=== PATIENT | female | born 1975 | race Caucasian/White ===

== ENCOUNTER → 2017-10-19 11:19 | Outpatient (CLI) | payer OTHER, MEDICAID, SELFPAY ==
[2017-10-19 13:21] LABS: Urine N gonorrhoeae NOT DETECTED
[2017-10-19 15:31] LABS: Urine Chlamydia NOT DETECTED
[2017-10-19 19:45] LABS: HIV 1 and 2 Antibody NEGATIVE (NEGATIVE)
[2017-10-27 09:47] LABS: Rapid Plasma Reagin NON-REACTIVE
== END ==
PROVIDERS: Family Provider Family Medicine; PCP Family Medicine; Visit Provider Internal Medicine
DX: Z72.51 High risk heterosexual behavior (principal)
CPT/HCPCS: 36415; 86592; 86703; 87491; 87591

== ENCOUNTER → 2017-12-13 10:05 | Outpatient (CLI) | payer OTHER, MEDICAID, SELFPAY ==
[2017-12-13 12:03] LABS: Vitamin D 25 Hydroxy (D3) 44.8 ng/mL (30.0-100.0)
== END ==
PROVIDERS: PCP Family Medicine; Visit Provider Family Medicine
DX: E55.9 Vitamin D deficiency, unspecified (principal)
CPT/HCPCS: 36415; 82306

== ENCOUNTER → 2018-04-19 12:59 | Outpatient (CLI) | payer OTHER, MEDICAID, SELFPAY ==
[2018-04-19 15:18] LABS: Vitamin D 25 Hydroxy (D3) 30.3 ng/mL (30.0-100.0)
== END ==
PROVIDERS: Family Provider Family Medicine; PCP Family Medicine; Visit Provider Family Medicine
DX: E55.9 Vitamin D deficiency, unspecified (principal)
CPT/HCPCS: 36415; 82306

== ENCOUNTER → 2018-05-08 16:30 | Outpatient (CLI) | payer OTHER, MEDICAID, SELFPAY | PROVIDERS: PCP Family Medicine; Visit Provider Family Medicine | DX: Z84.81 Family history of carrier of genetic disease (principal) | CPT/HCPCS: 36415 ==

== ENCOUNTER → 2018-05-30 16:52 | Outpatient (CLI) | payer OTHER, MEDICAID, SELFPAY ==
[2018-05-30 17:53] LABS: Add Manual Diff / Slide Review NO; Basophils Absolute Auto 0 /uL (0-100); Basophils Percent Auto 0.2 % (0-2); Eosinophils Absolute Auto 100 /uL (0-450); Eosinophils Percent Auto 0.7 % (2-4); Hematocrit 39.4 % (36-46); Lymphocytes Absolute Auto 2000 /uL (1100-4500); Lymphocytes Percent Auto 26.6 % (25-40); Mean Corpuscular HGB Conc 32.9 % (30-36); Mean Corpuscular Hemoglobin 30.4 PG (26-34); Mean Corpuscular Volume 92.5 fL (80-100); Monocytes Absolute Auto 500 /uL (0-900); Monocytes Percent Auto 6.1 % (3-14); Neutrophils Absolute Auto 4900 /uL (1500-7000); Neutrophils Percent Auto 66.4 % (50-75); Platelet Count 193 X10^3/uL (150-400); Red Blood Cell Count 4.26 X10^6/uL (4.0-5.2); Red Cell Distribution Width 12.7 % (11.6-14.8); White Blood Cell Count 7.4 X10^3/uL (4.5-11.0)
[2018-05-30 18:02] LABS: Alanine Aminotransferase 37 IU/L (9-52); Albumin 4.3 g/dL (3.5-5.0); Albumin Globulin Ratio 1.5 (1.0-2.8); Alkaline Phosphatase 72 U/L (38-126); Aspartate Aminotransferase 24 IU/L (14-36); BUN Creatinine Ratio 21.7 (6-22); Bilirubin Total 0.6 mg/dL (0.2-1.3); Blood Urea Nitrogen 13 mg/dL (7-17); Calcium 9.4 mg/dL (8.4-10.2); Carbon Dioxide 26 mmol/L (22-32); Chloride 103 mmol/L (98-107); Estimated Glomerular Filt Rate > 60.0 mL/min (>60); Globulin 2.9 g/dL (1.7-4.1); Glucose 141 mg/dL (70-100); HEMOLYSIS < 15 (0-50); Sodium 140 mmol/L (137-145); Total Protein 7.2 g/dL (6.3-8.2)
[2018-05-30 18:03] LABS: C-Reactive Protein Quant < 0.5 mg/dL (<1.0); Rheumatoid Factor < 8.6 IU/mL (<12.0)
[2018-05-30 18:06] LABS: Hemoglobin A1C% w Est Avg Glu 5.6 % (4.0-6.0)
[2018-05-30 18:07] LABS: Erythrocyte Sedimentation Rate 28 MM/HR (0-20)
[2018-06-01 11:09] LABS: CCP Antibody (IgG) < 16 Units (< 20)
[2018-06-01 12:04] LABS: Lipoprofile NMR SEE SEPARATE REPORTS
[2018-06-02 11:50] LABS: Homocysteine 7.6 umol/L (< 10.4)
[2018-06-04 17:59] LABS: Methylmalonic Acid 143 nmol/L (87-318)
== END ==
PROVIDERS: Family Provider Family Medicine; PCP Family Medicine; Visit Provider Family Medicine
DX: E72.12 Methylenetetrahydrofolate reductase deficiency (principal); E11.9 Type 2 diabetes mellitus without complications; M25.50 Pain in unspecified joint; E66.01 Morbid (severe) obesity due to excess calories; Z82.49 Family history of ischemic heart disease and other diseases of the circulatory system
CPT/HCPCS: 36415; 80053; 83036; 83090; 83516; 83704; 83921; 84443; 85025; 85651; 86140; 86430

== ENCOUNTER → 2018-06-26 12:09 | Outpatient (CLI) | payer OTHER, MEDICAID, SELFPAY ==
[2018-06-26 12:14] LABS: RBC Urine None Seen (0-5/HPF)
[2018-06-26 13:02] LABS: Appearance Urine UA CLOUDY; Bilirubin Urine UA NEGATIVE (NEGATIVE); Color Urine UA YELLOW; Glucose Urine UA NEGATIVE (Negative); Ketones Urine UA NEGATIVE (NEGATIVE); Leukocyte Esterase Urine UA TRACE (NEGATIVE); Nitrite Urine UA NEGATIVE (Negative); Occult Blood Urine UA NEGATIVE (Negative); Protein Urine UA TRACE (Negative); Specific Gravity Urine UA >=1.030 (1.000-1.035)
[2018-06-26 13:20] LABS: Amorphous Sediment Urine 1+; Bacteria Urine Moderate (10-30); Culture Indicated Urine Specimen Cultured; Mucus Urine 2+ (Negative); Squamous Epithelial Cell Urine 5-10 /HPF; WBC Urine 5-10/HPF (0-5/HPF)
== END ==
PROVIDERS: Family Provider Family Medicine; PCP Family Medicine; Visit Provider Family Medicine
DX: R39.89 Other symptoms and signs involving the genitourinary system (principal)
CPT/HCPCS: 81001; 87086

== ENCOUNTER → 2018-10-10 15:03 | Outpatient (CLI) | payer OTHER, MEDICAID, SELFPAY ==
[2018-10-10 16:03] LABS: Hemoglobin A1C% w Est Avg Glu 5.7 % (4.0-6.0)
[2018-10-10 16:47] LABS: Vitamin D 25 Hydroxy (D3) 36.5 ng/mL (30.0-100.0)
[2018-10-10 17:17] LABS: Vitamin B12 447 pg/mL (239-931)
== END ==
PROVIDERS: PCP Family Medicine; Visit Provider Family Medicine
DX: E11.9 Type 2 diabetes mellitus without complications (principal); E55.9 Vitamin D deficiency, unspecified; E72.12 Methylenetetrahydrofolate reductase deficiency; G35 Multiple sclerosis; M79.7 Fibromyalgia; Z98.84 Bariatric surgery status
CPT/HCPCS: 36415; 82306; 82607; 83036

== ENCOUNTER → 2019-01-14 09:14 | Outpatient (CLI) | payer OTHER, MEDICAID, SELFPAY ==
[2019-01-14 10:31] LABS: Add Manual Diff / Slide Review NO; Basophils Absolute Auto 0 /uL (0-100); Basophils Percent Auto 0.7 % (0-2); Eosinophils Absolute Auto 100 /uL (0-450); Eosinophils Percent Auto 1.4 % (2-4); Hematocrit 39.2 % (36-46); Hemoglobin 13.2 g/dL (12.0-16.0); Lymphocytes Absolute Auto 1900 /uL (1100-4500); Lymphocytes Percent Auto 31.7 % (25-40); Mean Corpuscular HGB Conc 33.8 % (30-36); Mean Corpuscular Hemoglobin 29.8 PG (26-34); Mean Corpuscular Volume 88.3 fL (80-100); Monocytes Absolute Auto 400 /uL (0-900); Monocytes Percent Auto 6.2 % (3-14); Neutrophils Absolute Auto 3500 /uL (1500-7000); Platelet Count 190 X10^3/uL (150-400); Red Blood Cell Count 4.44 X10^6/uL (4.0-5.2); Red Cell Distribution Width 12.7 % (11.6-14.8); White Blood Cell Count 5.9 X10^3/uL (4.5-11.0)
[2019-01-14 10:53] LABS: Alanine Aminotransferase 13 IU/L (9-52); Albumin Globulin Ratio 1.3 (1.0-2.8); Alkaline Phosphatase 76 U/L (38-126); Aspartate Aminotransferase 20 IU/L (14-36); BUN Creatinine Ratio 18.3 (6-22); Bilirubin Total 0.6 mg/dL (0.2-1.3); Blood Urea Nitrogen 11 mg/dL (7-17); Calcium 9.1 mg/dL (8.4-10.2); Carbon Dioxide 25 mmol/L (22-32); Chloride 107 mmol/L (98-107); Cholesterol 130 mg/dL (140-199); Estimated Glomerular Filt Rate > 60.0 mL/min (>60); Glucose 131 mg/dL (70-100); HDL Cholesterol 42 mg/dL (40-60); HEMOLYSIS < 15 (0-50); LDL Cholesterol Calculated 64 mg/dL (<100); Potassium 3.8 mmol/L (3.4-5.1); Sodium 143 mmol/L (137-145); Triglycerides 121 mg/dL (35-150)
[2019-01-14 11:28] LABS: Ferritin 30.6 ng/mL (6.27-137)
[2019-01-14 11:37] LABS: TSH w/ Reflex to FT4 2.14 uIU/mL (0.47-4.68)
[2019-01-14 11:58] LABS: Folate 6.8 ng/mL (2.76-20.0); Vitamin B12 368 pg/mL (239-931)
[2019-01-17 16:03] LABS: 1 25 Dihydroxy Vitamin D 41 pg/mL (18-72)
== END ==
PROVIDERS: PCP Family Medicine; Visit Provider Family Medicine
DX: R55 Syncope and collapse (principal); Z13.220 Encounter for screening for lipoid disorders; Z98.84 Bariatric surgery status
CPT/HCPCS: 36415; 80053; 80061; 82306; 82607; 82652; 82728; 82746; 84443; 85025

== ENCOUNTER 2019-06-06 14:09 | Day surgery (SDC) | payer OTHER, MEDICAID, SELFPAY ==
[2019-06-06] MEDS: SODIUM CHLORIDE 0.9% 1,000 ML 200 ML IV (14:27)
[2019-06-06 14:38] VITALS: BP 109/71; PULSE 69; RESP 14; TEMP 36.4; O2SAT 96; BMI 38.4
--- NOTE | 2019-06-06 15:04 | PM.HP.1 ---
History of Present Illness History of Present Illness Date Patient Seen: 06/06/19 Time Patient Seen: 15:04 Chief complaint: [id number] Narrative: Patient presents for colorectal screening. They have never had any previous examination for such. No personal history of but she has a family history colon cancer. On further history denies any recent gastrointestinal symptoms. No nausea, vomiting, abdominal pain, loss of appetite, unexplained weight loss, change in bowel habits, diarrhea, constipation, melena, hematochezia, or bright red blood per rectum. 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) Morbid obesity with BMI of 50.0-59.9, adult (Chronic) Sleep apnea (Chronic) Vitamin D deficiency (Chronic) Surgical History History of gastric bypass (01/06/14) History of hand surgery (Acute ~2006) Status post delivery (~2009) Status post delivery (~2012) Status post dilation and curettage Status post glossectomy (Resolved ~2008) Status post tubal ligation (~2012) Family & Social History Family History Grandfather Heart disease Mother Obesity, unspecified obesity severity, unspecified obesity type Grandmother Heart disease Social History: household members spouse Tobacco & Substance use: Smoking Status Never smoker alcohol intake never Substance Use Type does not use Meds Home Medications and Allergies Home Medications Medication Instructions Recorded Confirmed Type acetaminophen [Tylenol Extra 0 mg PO Q4HP PRN #0 02/24/17 06/06/19 History Strength] zolpidem 10 mg tablet 10 mg PO BEDTIME PRN #30 tab 08/31/18 06/06/19 Rx pregabalin 200 mg capsule 200 mg PO BID #60 cap 09/13/18 06/06/19 Rx bupropion HCl 75 mg tablet 75 mg PO BID #60 tab 10/10/18 06/06/19 Rx cholecalciferol (vitamin D3) 1,250 50,000 unit PO .every 2 weeks #7 10/10/18 06/06/19 Rx mcg (50,000 unit) capsule cap vitamin-ferrous fumarate 1 cap PO QDAY #90 cap 10/10/18 Rx 65 mg iron-folic acid 1 mg capsule citalopram 20 mg tablet 40 mg PO DAILY #60 tab 11/19/18 06/06/19 Rx alprazolam 0.5 mg tablet 0.5 mg PO BID PRN #20 tab 01/14/19 06/06/19 Rx Allergies Allergy/AdvReac Type Severity Reaction Status Date / Time buspirone Allergy Severe Swelling Verified 06/06/19 14:30 of Lip/Tongue/Throat propranolol Allergy Severe Swelling Verified 06/06/19 14:30 of Lip/Tongue/Throat Review of Systems Review of Systems Narrative: A 10 point review of systems is negative except as noted in the HPI Exam Vital Signs (past 8 hours): - 06/06/19 14:38 Temperature 97.6 F Pulse Rate 69 Respiratory Rate 14 Blood Pressure 109/71 Pulse Oximetry 96 Oxygen Delivery Method Room Air Narrative Exam Narrative: General-no acute distress, well nourished HEENT-moist mucous membranes, no scleral icterus Neck-supple, no lymphadenopathy Chest- non labored respirations, clear to auscultation bilaterally Cardiac-regular rate no peripheral edema Abdomen-soft, nontender, non distended Extremities-warm, well perfused Neurological-alert and oriented, no focal deficits Assessment & Plan Assessment and plan (1) Screening for colon cancer: Current visit: Yes Status: Acute Assessment & Plan narrative: The patient requires colorectal screening and colonoscopy is recommended. Technical details were discussed. Risks, benefits, alternatives explained. Risks including but not limited to myocardial infarction, aspiration, bleeding, pain, missed lesion, incomplete examination, need for further radiographic studies, colonic perforation, and need for major abdominal surgery were discussed. All questions were answered to their satisfaction, and they are in agreement with this plan.
[2019-06-06] MEDS: MIDAZOLAM 5 MG/5 ML VIAL IV (15:09)
[2019-06-06] MEDS: fentaNYL 250 MCG/5 ML INJ IV (15:10)
--- NOTE | 2019-06-06 15:30 | PM.OP.ENDO ---
Operative Date/Time/Diagnoses Date of procedure: 06/06/19 Time of procedure: 15:30 Pre-op diagnosis: Family history of colon cancer Post-op diagnosis: same Procedure & Clinicians Study performed: Colonoscopy Same procedure as scheduled: Yes Indications: Family history of colon cancer. No prior colonoscopy Surgeon: Anup Ortiz Procedure Notes SCOAP/Timeout: Performed Procedure in detail: Patient placed in left lateral decubitus position. Time out was performed. Procedural sedation was administered with Versed and Fentanyl. A rectal exam demonstrated no external hemorrhoids no internal masses. Colonoscopy scope was placed into the rectum and advanced through the colon to the cecum. The ileocecal valve was identified. The scope was then slowly withdrawn examining colon thoroughly in all directions. The colonoscopy was notable for the following 1. No masses or polyps 2. Quality of prep fair 3. No diverticulosis Scope withdrawal time: 7 Sedation minutes: 26 Specimen(s): none sent Complications: none Impression: The normal colonoscopy Post-procedure Disposition: same day surgery
[2019-06-06 15:36] VITALS: BP 114/72; PULSE 75; RESP 12; TEMP 36.3; O2SAT 99
[2019-06-06 15:41] VITALS: BP 101/66; PULSE 75; RESP 18; O2SAT 99
[2019-06-06 15:45] VITALS: BP 107/65; PULSE 80; RESP 22; TEMP 36.1; O2SAT 99
== END 2019-06-06 16:05 | disposition home or self-care (01) ==
PROVIDERS: PCP Family Medicine; Referring Provider Surgery; Visit Provider Surgery
PROC: 0DJD8ZZ Inspection of Lower Intestinal Tract, Via Natural or Artificial Opening Endoscopic (ICD-10-PCS; CPT 45378; principal; 2019-06-06 15:15)
DX: Z12.11 Encounter for screening for malignant neoplasm of colon (principal); Z80.0 Family history of malignant neoplasm of digestive organs; E11.9 Type 2 diabetes mellitus without complications; F41.9 Anxiety disorder, unspecified; E66.01 Morbid (severe) obesity due to excess calories; Z68.43 Body mass index [BMI] 50.0-59.9, adult; G47.30 Sleep apnea, unspecified
CPT/HCPCS: 45378; 99152; 99153; J2250; J3010

== ENCOUNTER → 2020-04-09 12:29 | Outpatient (CLI) | payer OTHER, MEDICAID, SELFPAY ==
[2020-04-09 13:08] LABS: Add Manual Diff / Slide Review NO; Basophils Absolute Auto 0 /uL (0-100); Basophils Percent Auto 0.3 % (0-2); Eosinophils Absolute Auto 0 /uL (0-450); Eosinophils Percent Auto 0.6 % (2-4); Hematocrit 40.4 % (36-46); Hemoglobin 13.7 g/dL (12.0-16.0); Lymphocytes Absolute Auto 1700 /uL (1100-4500); Lymphocytes Percent Auto 24.6 % (25-40); Mean Corpuscular HGB Conc 33.8 % (30-36); Mean Corpuscular Hemoglobin 30.5 PG (26-34); Mean Corpuscular Volume 90.3 fL (80-100); Monocytes Absolute Auto 500 /uL (0-900); Monocytes Percent Auto 6.6 % (3-14); Neutrophils Absolute Auto 4700 /uL (1500-7000); Neutrophils Percent Auto 67.9 % (50-75); Platelet Count 200 X10^3/uL (150-400); Red Blood Cell Count 4.48 X10^6/uL (4.0-5.2); Red Cell Distribution Width 13.2 % (11.6-14.8)
[2020-04-09 13:27] LABS: Hemoglobin A1C% w Est Avg Glu 6.4 % (4.0-6.0)
[2020-04-09 13:45] LABS: Alanine Aminotransferase 17 IU/L (<35); Albumin Globulin Ratio 1.5 (1.0-2.8); Alkaline Phosphatase 74 U/L (38-126); Aspartate Aminotransferase 24 IU/L (14-36); BUN Creatinine Ratio 15.4 (6-22); Bilirubin Total 0.6 mg/dL (0.2-1.3); Blood Urea Nitrogen 10 mg/dL (7-17); Calcium 9.2 mg/dL (8.4-10.2); Carbon Dioxide 30 mmol/L (22-32); Chloride 107 mmol/L (98-107); Cholesterol 141 mg/dL (140-199); Estimated Glomerular Filt Rate > 60.0 mL/min (>60); Globulin 2.7 g/dL (1.7-4.1); Glucose 117 mg/dL (70-100); HDL Cholesterol 49 mg/dL (40-60); HEMOLYSIS < 15 (0-50); LDL Cholesterol Calculated 72 mg/dL (<100); Potassium 3.9 mmol/L (3.4-5.1); Sodium 141 mmol/L (137-145); Total Protein 6.7 g/dL (6.3-8.2); Triglycerides 102 mg/dL (35-150)
[2020-04-09 14:15] LABS: TSH w/ Reflex to FT4 1.96 uIU/mL (0.47-4.68)
[2020-04-09 14:33] LABS: Vitamin B12 317 pg/mL (239-931)
== END ==
PROVIDERS: PCP Family Medicine; Referring Provider Physician Assistant; Visit Provider Physician Assistant
DX: E66.01 Morbid (severe) obesity due to excess calories (principal); Z98.84 Bariatric surgery status; Z68.42 Body mass index [BMI] 45.0-49.9, adult; Z91.89 Other specified personal risk factors, not elsewhere classified
CPT/HCPCS: 36415; 80053; 80061; 82607; 83036; 84443; 85025

== ENCOUNTER → 2020-04-16 12:23 | Outpatient (CLI) | payer OTHER, MEDICAID, SELFPAY | PROVIDERS: PCP Family Medicine; Visit Provider Physician Assistant | DX: N39.0 Urinary tract infection, site not specified (principal) | CPT/HCPCS: 87077; 87086; 87186 ==

== ENCOUNTER → 2020-04-27 11:38 | Outpatient (CLI) | payer OTHER, MEDICAID, SELFPAY ==
[2020-04-27 13:19] LABS: Hemoglobin A1C% w Est Avg Glu 6.1 % (4.0-6.0)
[2020-04-27 13:28] LABS: Glucose Fasting 117 mg/dL (70-100)
[2020-04-27 14:26] LABS: Glucose Tol Interpretation INTERPRETATION
[2020-04-27 16:02] LABS: Glucose 1 Hour 256 mg/dL (70-170)
[2020-04-27 17:26] LABS: Glucose 2 Hour 128 mg/dL (70-140)
== END ==
PROVIDERS: PCP Family Medicine; Referring Provider Physician Assistant; Visit Provider Physician Assistant
DX: Z13.1 Encounter for screening for diabetes mellitus (principal)
CPT/HCPCS: 36415; 82951; 82952; 83036

== ENCOUNTER 2020-09-30 16:33 | Emergency (ER) | payer OTHER, MEDICAID, SELFPAY ==
[2020-09-30 16:56] VITALS: BP 127/81; PULSE 82; RESP 17; TEMP 36.7; O2SAT 97
--- NOTE | 2020-09-30 17:01 | DI.RAD.S_ITS ---
PROCEDURE: XR ANKLE LT MIN 3V INDICATIONS: injury TECHNIQUE: 3 views of the ankle were acquired. COMPARISON: None. FINDINGS: Bones: No fractures or dislocations. Ankle mortise is normally aligned. No suspicious bony lesions. Soft tissues: No tibiotalar joint effusion. Achilles tendon appears normal. IMPRESSION: No trauma found. Dictated by: Jose Little M.D. on 09/30/2020 at 17:48 Approved by: Jose Little M.D. on 09/30/2020 at 17:51
--- NOTE | 2020-09-30 19:04 | ED.LOWEXIN ---
HPI - Extremity Injury (Lower) General Chief Complaint: Extremity Injury, Lower Stated Complaint: Tripped,left ankle pain Time Seen by Provider: 09/30/20 18:58 Source: patient Mode of arrival: Wheelchair History of Present Illness HPI Narrative: 45-year-old female here for evaluation of left ankle injury. States that earlier today she tripped and twisted her left ankle. Since that time she has had extreme pain with walking on her left ankle. Related Data Home Medications Medication Instructions Recorded Confirmed acetaminophen 500 mg tablet 0 mg PO Q4HP PRN #0 02/24/17 04/16/20 (Tylenol Extra Strength) Previous Rx's Medication Instructions Recorded zolpidem 10 mg tablet 10 mg PO BEDTIME PRN #30 tab 08/31/18 pregabalin 200 mg capsule 200 mg PO BID #60 cap 09/13/18 bupropion HCl 75 mg tablet 75 mg PO BID #60 tab 10/10/18 cholecalciferol (vitamin D3) 1,250 50,000 unit PO .every 2 weeks #7 10/10/18 mcg (50,000 unit) capsule cap vitamin-ferrous fumarate 1 cap PO QDAY #90 cap 10/10/18 65 mg iron-folic acid 1 mg capsule (Mynatal) citalopram 20 mg tablet 40 mg PO DAILY #60 tab 11/19/18 alprazolam 0.5 mg tablet 0.5 mg PO BID PRN #20 tab 01/14/19 Allergies Allergy/AdvReac Type Severity Reaction Status Date / Time buspirone Allergy Severe Swelling Verified 09/30/20 16:59 of Lip/Tongue/Throat propranolol Allergy Severe Swelling Verified 09/30/20 16:59 of Lip/Tongue/Throat Review of Systems Constitutional Constitutional: Reports system reviewed and no additional complaints, except as documented Cardiovascular Cardiovascular: Reports system reviewed and no additional complaints, except as documented Respiratory Respiratory: Reports system reviewed and no additional complaints, except as documented Musculoskeletal Comments: Left ankle pain Integumentary/Breasts Comments: No bruising Neurologic Neurologic: Reports system reviewed and no additional complaints, except as documented Hematologic/Lymphatic On Anticoagulants: No Patient History Medical History Abnormal Pap smear of cervix Depression Deviated septum Diabetes mellitus Fibromyalgia (05/17/17) Generalized anxiety disorder (02/04/11) GERD (gastroesophageal reflux disease) Homozygous MTHFR mutation C677T Morbid obesity with BMI of 50.0-59.9, adult Sleep apnea Vitamin D deficiency Surgical History History of gastric bypass (01/06/14) History of hand surgery (~2006) Status post delivery (~2009) Status post delivery (~2012) Status post dilation and curettage Status post glossectomy (~2008) Status post tubal ligation (~2012) Family History Grandfather Heart disease Mother Obesity, unspecified obesity severity, unspecified obesity type Grandmother Heart disease Social History household members: spouse Smoking Status: Never smoker alcohol intake: never substance use type: does not use Smoking Status: Never smoker alcohol intake frequency: other Substance Use Type: does not use Exam Initial Vital Signs Initial Vital Signs: Vital Signs Temperature 98.1 F 09/30/20 16:56 Pulse Rate 82 09/30/20 16:56 Respiratory Rate 17 09/30/20 16:56 Blood Pressure 127/81 09/30/20 16:56 Pulse Oximetry 97 09/30/20 16:56 Const General: cooperative, healthy appearing and comfortable HENMT Head: normal to inspection and normocephalic Resp Effort & Inspection: normal respiratory effort Cardio Pulses: dorsalis pedis present Skin General: no rashes or lesions noted Neuro General: patient alert and patient awake Sensory Exam: no sensory deficits noted Extrem Other: Patient has no calf tenderness. No fibula tenderness. Does have swelling on the lateral aspect of the left foot along the lateral malleolus. No tenderness along the base of the 5th metatarsal. No tenderness along the Achilles tendon. Minimal tenderness along the medial malleolus. Is tender along the tibiotalar joint. Toes are unremarkable. Procedures Orthopedic Splinting/Casting Injury #1: Side: left Lower Extremity Injury Location: ankle Lower Extremity Immobilizer: Gelacio wrap Other Orthopedic Equipment: crutches Post splinting neuro exam: no change Post splinting vascular exam: no change Placed by: Nursing Course Orders Ordered: ED Orders 09/30/20 17:01 XR ankle LT min 3V Stat Vital Signs Vital signs: Vital Signs - 8 hr 09/30/20 16:56 Temperature 98.1 F Pulse Rate 82 Respiratory Rate 17 Blood Pressure 127/81 Pulse Oximetry 97 [facility] - Extremity Injury (Lower) Imaging Data Extremity x-ray #1: Radiologist's Impression: [address] [id number] ReportSigned Patient: Omayra Morse LMR#: [id number]: [id number]:[id number]/Sex: 45 / FDate of Service: 09/30/20Loc: EDAccession Number: [id number] Procedure: XR ankle LT min 3V Ordering Provider: Allyssa Reid D.O. PROCEDURE: XR ANKLE LT MIN 3V INDICATIONS: injury TECHNIQUE: 3 views of the ankle were acquired. COMPARISON: None. FINDINGS: Bones: No fractures or dislocations. Ankle mortise is normally aligned. No suspicious bony lesions. Soft tissues: No tibiotalar joint effusion. Achilles tendon appears normal. IMPRESSION: No trauma found. Dictated by: Jose Little M.D. on 09/30/2020 at 17:48 Approved by: Jose Little M.D. on 09/30/2020 at 17:51 [facility] Narrative Medical decision making narrative: Patient is neurovascularly intact. No fractures noted on the x-rays. She is swollen along the lateral aspect of the left ankle. I feel we can hold on further radiologic studies. Patient was provided an Gelacio bandage and crutches for comfort and she was given care instructions and return precautions. She expressed understanding and agreement. Discharge Plan Departure Patient Disposition: Home Clinical Impression: Left ankle sprain Instructions: How to Use Crutches, DI for Ankle Sprain, How To Perform RICE (Rest, Ice, Compress, Elevate), How to Apply an Elastic Wrap on Ankle Activity Restrictions/Additional Instructions: There were no fractures on the x-rays so you can walk on your leg as tolerated. I do recommend that you spend the next several days with your foot elevated and also use ice. You can use the Gelacio bandage or purchase a ankle brace from a local drug store if you wish. Return to the emergency department for any new or worsening symptoms like we discussed. Prescriptions: No Action acetaminophen [Tylenol Extra Strength] 500 MG tablet 0 mg PO Q4HP PRN (Reason: Pain (Scale Score 1-3)) Qty: 0 RF: 0 pregabalin 200 mg capsule 200 mg PO BID Qty: 60 RF: 1 citalopram 20 mg tablet 40 mg PO DAILY Qty: 60 RF: 1 alprazolam 0.5 mg tablet 0.5 mg PO BID PRN (Reason: anxiety) Qty: 20 RF: 0 zolpidem 10 mg tablet 10 mg PO BEDTIME PRN (Reason: sleep) Qty: 30 RF: 2 bupropion HCl 75 mg tablet 75 mg PO BID Qty: 60 RF: 1 Mynatal 65 mg iron- 1 mg capsule 1 cap PO QDAY Qty: 90 RF: 3 cholecalciferol (vitamin D3) 50,000 unit capsule 50,000 unit PO .every 2 weeks Qty: 7 RF: 0 Referrals: Jan Marcial DO [Primary Care Provider] -
== END 2020-09-30 19:32 | disposition home or self-care (01) ==
PROVIDERS: Emergency Provider Emergency Medicine; PCP Family Medicine
DX: S93.402A Sprain of unspecified ligament of left ankle, initial encounter (principal); W18.40XA Slipping, tripping and stumbling without falling, unspecified, initial encounter
CPT/HCPCS: 73610; 99281; 99283

== ENCOUNTER → 2021-01-03 13:09 | Outpatient (CLI) | payer OTHER, MEDICAID, SELFPAY | PROVIDERS: Family Provider Family Medicine; PCP Family Medicine; Visit Provider Nurse Practitioner Family | DX: K13.79 Other lesions of oral mucosa (principal) | CPT/HCPCS: 87070; 87255; 87880 ==

== ENCOUNTER → 2021-02-11 13:08 | Outpatient (CLI) | payer OTHER, MEDICAID, SELFPAY ==
[2021-02-11 13:59] LABS: COVID19 -Nasal RAPID POSITIVE (Negative)
== END ==
PROVIDERS: Family Provider Family Medicine; PCP Family Medicine; Referring Provider Nurse Practitioner Family; Visit Provider Nurse Practitioner Family
DX: Z20.822 Contact with and (suspected) exposure to COVID-19 (principal)
CPT/HCPCS: 87635

== ENCOUNTER 2021-04-13 15:15 | Observation (INO) | payer OTHER, MEDICAID, SELFPAY ==
[2021-04-13] VITALS (23 sets, daily range): BP systolic 80–108; BP diastolic 51–65; PULSE 68–111; RESP 11–36; TEMP 36.1–37.1; O2SAT 94–100; BMI 32.3
[2021-04-13 16:20] LABS: Add Manual Diff / Slide Review NO; Basophils Absolute Auto 0 /uL (0-100); Basophils Percent Auto 0.4 % (0-2); Eosinophils Absolute Auto 0 /uL (0-450); Eosinophils Percent Auto 0.2 % (2-4); Hematocrit 31.3 % (36-46); Hemoglobin 10.9 g/dL (12.0-16.0); Lymphocytes Absolute Auto 200 /uL (1100-4500); Lymphocytes Percent Auto 3.3 % (25-40); Mean Corpuscular HGB Conc 34.8 % (30-36); Mean Corpuscular Hemoglobin 29.2 PG (26-34); Mean Corpuscular Volume 83.9 fL (80-100); Monocytes Absolute Auto 100 /uL (0-900); Monocytes Percent Auto 2.6 % (3-14); Neutrophils Absolute Auto 5400 /uL (1500-7000); Neutrophils Percent Auto 93.5 % (50-75); Platelet Count 245 X10^3/uL (150-400); Red Blood Cell Count 3.73 X10^6/uL (4.0-5.2); Red Cell Distribution Width 12.8 % (11.6-14.8); White Blood Cell Count 5.7 X10^3/uL (4.5-11.0)
[2021-04-13 16:39] LABS: Alanine Aminotransferase 27 IU/L (<35); Albumin 3.3 g/dL (3.5-5.0); Alkaline Phosphatase 105 U/L (38-126); Aspartate Aminotransferase 39 IU/L (14-36); BUN Creatinine Ratio 8.6 (6-22); Blood Urea Nitrogen 15 mg/dL (7-17); Calcium 8.5 mg/dL (8.4-10.2); Carbon Dioxide 27 mmol/L (22-32); Chloride 99 mmol/L (98-107); Estimated Glomerular Filt Rate 31.4 mL/min (>60); Globulin 3.4 g/dL (1.7-4.1); Glucose 227 mg/dL (70-100); HEMOLYSIS < 15 (0-50); Lipase 31 U/L (23-300); Potassium 2.9 mmol/L (3.4-5.1); Sodium 133 mmol/L (137-145); Total Protein 6.7 g/dL (6.3-8.2)
[2021-04-13] MEDS: SODIUM CHLORIDE 0.9% 1,000 ML 1000 ML IV ×2 (16:46→19:43)
--- NOTE | 2021-04-13 18:17 | ED_ITS ---
HPI - General Adult General Chief complaint: Abdominal Pain Stated complaint: PAINS ACROSS LOWER BACK AND ABD PAIN FAINTED Time Seen by Provider: 04/13/21 18:10 Source: patient Mode of arrival: Ambulatory History of Present Illness HPI narrative: Patient is a 45-year-old female who is here for evaluation of approximately 4 days of left-sided back discomfort, nausea, malaise, dysuria, frequency. Has not tried anything for the symptoms. No fevers. No vomiting. Minor abdominal pain in the left lower abdomen. No change in bowel habits. No rashes. Related Data Home Medications Medication Instructions Recorded Confirmed acetaminophen 500 mg tablet 0 mg PO Q4HP PRN #0 02/24/17 02/11/21 (Tylenol Extra Strength) Previous Rx's Medication Instructions Recorded zolpidem 10 mg tablet 10 mg PO BEDTIME PRN #30 tab 08/31/18 pregabalin 200 mg capsule 200 mg PO BID #60 cap 09/13/18 bupropion HCl 75 mg tablet 75 mg PO BID #60 tab 10/10/18 cholecalciferol (vitamin D3) 1,250 50,000 unit PO .every 2 weeks #7 10/10/18 mcg (50,000 unit) capsule cap vitamin-ferrous fumarate 1 cap PO QDAY #90 cap 10/10/18 65 mg iron-folic acid 1 mg capsule (Mynatal) citalopram 20 mg tablet 40 mg PO DAILY #60 tab 11/19/18 alprazolam 0.5 mg tablet 0.5 mg PO BID PRN #20 tab 01/14/19 lidocaine HCl 2 % mucosal solution 1 applic MUCOUS MEMBRANE TID PRN 01/03/21 #100 ml Allergies Allergy/AdvReac Type Severity Reaction Status Date / Time buspirone Allergy Severe Swelling Verified 01/03/21 12:46 of Lip/Tongue/Throat propranolol Allergy Severe Swelling Verified 01/03/21 12:46 of Lip/Tongue/Throat Review of Systems Constitutional Constitutional: Reports body ache(s), Reports chills and Denies fever(s) ENT Ears, Nose, Mouth, and Throat: Reports system reviewed and no additional complaints, except as documented Cardiovascular Cardiovascular: Denies chest pain and Denies dyspnea Respiratory Respiratory: Denies dyspnea Gastrointestinal Gastrointestinal: Reports as per HPI and Reports system reviewed and no additional complaints, except as documented Genitourinary Genitourinary: Reports system reviewed and no additional complaints, except as documented and Reports as per HPI Musculoskeletal Musculoskeletal: Reports back pain Integumentary/Breasts Skin/Breast: Reports system reviewed and no additional complaints, except as do cumented Neurologic Neurologic: Reports system reviewed and no additional complaints, except as documented Hematologic/Lymphatic On Anticoagulants: No Patient History Medical History Abnormal Pap smear of cervix Depression Deviated septum Diabetes mellitus Fibromyalgia (05/17/17) Generalized anxiety disorder (02/04/11) GERD (gastroesophageal reflux disease) Homozygous MTHFR mutation [id number] Morbid obesity with BMI of 50.0-59.9, adult Sleep apnea Vitamin D deficiency Surgical History History of gastric bypass (01/06/14) History of hand surgery (~2006) Status post delivery (~2009) Status post delivery (~2012) Status post dilation and curettage Status post glossectomy (~2008) Status post tubal ligation (~2012) Family History Grandfather Heart disease Mother Obesity, unspecified obesity severity, unspecified obesity type Grandmother Heart disease Social History household members: spouse Smoking Status: Former smoker alcohol intake: never substance use type: does not use Smoking Status: Former smoker alcohol intake frequency: other Substance Use Type: does not use Exam Initial Vital Signs Initial Vital Signs: Vital Signs Temperature 98.8 F 04/13/21 15:57 Pulse Rate 111 H 04/13/21 15:57 Respiratory Rate 18 04/13/21 15:57 Blood Pressure 90/57 L 04/13/21 15:57 Pulse Oximetry 97 04/13/21 15:57 Const General: cooperative, diaphoretic, No disheveled and ill appearing Limitations: mental status not altered HENMT Head: normal to inspection Resp Effort & Inspection: normal respiratory effort Auscultation: clear to auscultation bilaterally Cardio Rate: tachycardic Rhythm: regular rhythm GI Inspection: normal to inspection Palpation: soft and No tender Back/Spine/Pelvis Back: CVA tenderness left Skin General: no rashes or lesions noted Neuro General: patient alert, patient awake and moves all extremities Speech: speech normal Extrem General: normal to inspection and capillary refill normal Psych Appearance: grossly normal and well kempt Scores GCS Shayla coma scale eye opening: Spontaneous Shayla coma scale verbal response: Orientated [place] coma scale motor response: Obey commands Shayla coma scale total score: 15 Course Orders Ordered: ED Orders 04/13/21 16:03 EKG-12 Lead Stat 04/13/21 16:12 Complete Blood Count AUTO DIFF Stat Comprehensive Metabolic Panel Stat Lipase Stat 04/13/21 16:18 Lactate (Lactic Acid) Stat 04/13/21 16:40 Blood Culture Stat 04/13/21 18:20 CT abdomen pelvis w con Stat 04/13/21 18:47 Ictotest Urine Stat Test Urine Stat Urinalysis and Microscopic Stat Urine Culture Stat 04/13/21 21:30 COVID19 - ADMIT ([employer] swab/PCR) Stat Acetaminophen (Acetaminophen 325 Mg Tablet) 650 mg PO Q6HR PRN PRN Reason: Fever/Mild Pain (1-3) Dextrose (Dextrose 50 % In Water 25 Gm/50 Ml Syringe) 25 gm IV PRN PRN PRN Reason: Hypoglycemia Enoxaparin Sodium (Enoxaparin 40 Mg/0.4 Ml Syringe) 40 mg SUBCUT DAILY ISA Sodium Chloride (Normal Saline 0.9%) 1,000 mls @ 100 mls/hr IV CONT ISA Last Admin: 04/13/21 23:07 Dose: 100 mls/hr Documented by: VANIA Ceftriaxone Sodium 1,000 mg/ (Sodium Chloride) 100 mls @ 200 mls/hr IV Q24H ISA Insulin Human Lispro (Insulin Lispro 100 Unit/Ml 3ml Vial) 0 unit SUBCUT ACHS ISA; Protocol Ketorolac Tromethamine (Ketorolac 30 Mg/Ml Vial) 30 mg IV Q6HR PRN PRN Reason: Pain, Severe (7-10) Stop: 04/18/21 22:51 Naloxone HCl (Naloxone 0.4 Mg/Ml Vial) 0.2 mg IV Q2MIN PRN PRN Reason: Opiate Reversal Ondansetron HCl (Ondansetron 4 Mg/2 Ml Inj) 4 mg IV Q8HR PRN PRN Reason: Nausea And Vomiting Discontinued Medications Sodium Chloride (Normal Saline 0.9%) 1,000 mls @ 1,000 mls/hr IV BOLUS ONE Stop: 04/13/21 17:43 Last Infusion: 04/13/21 19:33 Dose: 0 mls/hr Documented by: Admin: 04/13/21 16:46 Dose: 1,000 mls/hr Documented by: VIOLETA Ceftriaxone Sodium 2,000 mg/ (Sodium Chloride) 100 mls @ 200 mls/hr IV NOW ONE Stop: 04/13/21 18:59 Last Infusion: 04/13/21 19:39 Dose: 0 mls/hr Documented by: Admin: 04/13/21 19:06 Dose: 200 mls/hr Documented by: VIOLETA Sodium Chloride (Normal Saline 0.9%) 1,000 mls @ 1,000 mls/hr IV BOLUS ONE Stop: 04/13/21 20:34 Last Infusion: 04/13/21 22:00 Dose: 0 mls/hr Documented by: Admin: 04/13/21 19:43 Dose: 1,000 mls/hr Documented by: VANIA POTASSIUM CHLORIDE IN WATER (Potassium Cl 10 Meq/100 Ml Lexi) 10 meq in 100 mls @ 100 mls/hr IV Q1H ISA Stop: 04/13/21 21:44 Last Infusion: 04/13/21 22:00 Dose: 0 mls/hr Documented by: Admin: 04/13/21 20:54 Dose: 100 mls/hr Documented by: Infusion: 04/13/21 20:43 Dose: 100 mls/hr Documented by: Admin: 04/13/21 19:43 Dose: 100 mls/hr Documented by: VANIA Lactated Ringer's (Lactated Ringers) 1,000 mls @ 1,000 mls/hr IV BOLUS ONE Stop: 04/13/21 22:48 Last Infusion: 04/13/21 23:07 Dose: 0 mls/hr Documented by: Admin: 04/13/21 22:01 Dose: 1,000 mls/hr Documented by: VANIA Ketorolac Tromethamine (Ketorolac 30 Mg/Ml Vial) 30 mg IV NOW ONE Stop: 04/13/21 19:37 Last Admin: 04/13/21 19:43 Dose: 30 mg Documented by: KWOYSKI Ondansetron HCl (Ondansetron 4 Mg/2 Ml Inj) 4 mg IV NOW ONE Stop: 04/13/21 18:21 Last Admin: 04/13/21 18:27 Dose: 4 mg Documented by: LYDIA Vital Signs Vital signs: Vital Signs - 8 hr 04/13/21 16:36 04/13/21 16:37 04/13/21 17:00 Temperature Pulse Rate 99 H 100 H 94 H Respiratory Rate Blood Pressure 107/65 108/59 L Pulse Oximetry 95 95 94 04/13/21 17:30 04/13/21 18:00 04/13/21 18:54 Temperature Pulse Rate 88 85 81 Respiratory Rate Blood Pressure 107/59 L 107/57 L Pulse Oximetry 94 96 97 04/13/21 18:56 04/13/21 18:57 04/13/21 19:00 Temperature Pulse Rate 79 80 79 Respiratory Rate 36 H 20 Blood Pressure 88/55 L 91/53 L 96/58 L Pulse Oximetry 96 96 97 04/13/21 19:30 04/13/21 19:32 04/13/21 20:00 Temperature Pulse Rate 78 78 79 Respiratory Rate 18 19 17 Blood Pressure 88/55 L 90/55 L 88/54 L Pulse Oximetry 96 97 95 04/13/21 20:09 04/13/21 20:30 04/13/21 21:00 Temperature 97.0 F L Pulse Rate 80 75 74 Respiratory Rate 22 18 20 Blood Pressure 85/53 L 89/51 L 83/55 L Pulse Oximetry 97 96 97 04/13/21 21:30 Temperature Pulse Rate 73 Respiratory Rate Blood Pressure 83/54 L Pulse Oximetry 98 Medical Decision Making Lab Data Lab results reviewed: Yes I reviewed the patient's lab results. Result diagrams: 04/13/21 16:12 04/13/21 16:12 Labs: Lab Results 04/13/21 04/13/21 04/13/21 Range/Units 16:12 16:12 16:12 WBC 5.7 (4.5-11.0) X10^3/uL RBC 3.73 L (4.0-5.2) X10^6/uL Hgb 10.9 L (12.0-16.0) g/dL Hct 31.3 L (36-46) % MCV 83.9 (80-100) fL MCH 29.2 (26-34) PG MCHC 34.8 (30-36) % RDW 12.8 (11.6-14.8) % Plt Count 245 (150-400) X10^3/uL Neut % (Auto) 93.5 H (50-75) % Lymph % (Auto) 3.3 L (25-40) % [place] % (Auto) 2.6 L (3-14) % Eos % (Auto) 0.2 L (2-4) % Baso % (Auto) 0.4 (0-2) % Neut # (Auto) 5400 (7819-8658) /uL Lymph # (Auto) 200 L (6791-7631) /uL [place] # (Auto) 100 (0-900) /uL Eos # (Auto) 0 (0-450) /uL Baso # (Auto) 0 (0-100) /uL Sodium 133 L (137-145) mmol/L Potassium 2.9 L (3.4-5.1) mmol/L Chloride 99 (98-107) mmol/L Carbon Dioxide 27 (22-32) mmol/L BUN 15 (7-17) mg/dL Creatinine 1.75 H (0.52-1.04) mg/dL Estimated GFR 31.4 L (>60) mL/min BUN/Creatinine Ratio 8.6 (6-22) Glucose 227 H (70-100) mg/dL Hemoglobin A1c 6.0 (4.0-6.0) % Lactate (0.7-2.1) mmol/L Calcium 8.5 (8.4-10.2) mg/dL Magnesium (1.6-2.3) mg/dL Total Bilirubin 1.0 (0.2-1.3) mg/dL AST 39 H (14-36) IU/L ALT 27 (<35) IU/L Alkaline Phosphatase 105 (38-126) U/L Total Protein 6.7 (6.3-8.2) g/dL Albumin 3.3 L (3.5-5.0) g/dL Globulin 3.4 (1.7-4.1) g/dL Albumin/Globulin Ratio 1.0 (1.0-2.8) Lipase 31 (23-300) U/L Urine Color Urine Appearance Urine pH (4.5-8.0) Ur Specific [place] (1.000-1.035) Urine Protein (Negative) Urine Glucose (UA) (Negative) g/dL Urine Ketones (NEGATIVE) Urine Occult Blood (Negative) Urine Nitrate (Negative) Urine Bilirubin (NEGATIVE) Ur Bilirubin Confirm (Negative) Urine Urobilinogen (0.2) E.U./dL Ur Leukocyte Esterase (NEGATIVE) Urine RBC (0-5/HPF) Urine WBC (0-5/HPF) Ur Squamous Epith Cells (0-5/HPF) Ur Transition Epith Cell (0-5/HPF) Ur Renal Epithelial Cell (0-1/HPF) Amorphous Sediment Urine Bacteria (None) Ur Culture Indicated? Urine Test (Negative) SARS-CoV-2 (PCR) (Negative) 04/13/21 04/13/21 04/13/21 Range/Units 16:12 16:18 18:47 WBC (4.5-11.0) X10^3/uL RBC (4.0-5.2) X10^6/uL Hgb (12.0-16.0) g/dL Hct (36-46) % MCV (80-100) fL MCH (26-34) PG MCHC (30-36) % RDW (11.6-14.8) % Plt Count (150-400) X10^3/uL Neut % (Auto) (50-75) % Lymph % (Auto) (25-40) % [place] % (Auto) (3-14) % Eos % (Auto) (2-4) % Baso % (Auto) (0-2) % Neut # (Auto) (5577-7315) /uL Lymph # (Auto) (5161-3987) /uL [place] # (Auto) (0-900) /uL Eos # (Auto) (0-450) /uL Baso # (Auto) (0-100) /uL Sodium (137-145) mmol/L Potassium (3.4-5.1) mmol/L Chloride (98-107) mmol/L Carbon Dioxide (22-32) mmol/L BUN (7-17) mg/dL Creatinine (0.52-1.04) mg/dL Estimated GFR (>60) mL/min BUN/Creatinine Ratio (6-22) Glucose (70-100) mg/dL Hemoglobin A1c (4.0-6.0) % Lactate 2.1 (0.7-2.1) mmol/L Calcium (8.4-10.2) mg/dL Magnesium 1.5 L (1.6-2.3) mg/dL Total Bilirubin (0.2-1.3) mg/dL AST (14-36) IU/L ALT (<35) IU/L Alkaline Phosphatase (38-126) U/L Total Protein (6.3-8.2) g/dL Albumin (3.5-5.0) g/dL Globulin (1.7-4.1) g/dL Albumin/Globulin Ratio (1.0-2.8) Lipase (23-300) U/L Urine Color Yellow Urine Appearance Cloudy Urine pH 5.0 (4.5-8.0) Ur Specific [place] 1.020 (1.000-1.035) Urine Protein 2+ H (Negative) Urine Glucose (UA) Negative (Negative) g/dL Urine Ketones Trace H (NEGATIVE) Urine Occult Blood 3+ H (Negative) Urine Nitrate Negative (Negative) Urine Bilirubin 1+ H (NEGATIVE) Ur Bilirubin Confirm Negative (Negative) Urine Urobilinogen 1.0 (0.2) E.U./dL Ur Leukocyte Esterase 2+ H (NEGATIVE) Urine RBC 30-100/hpf H (0-5/HPF) Urine WBC >100/hpf H (0-5/HPF) Ur Squamous Epith Cells 1-5 /hpf (0-5/HPF) Ur Transition Epith Cell 5-10/hpf H (0-5/HPF) Ur Renal Epithelial Cell 1-5/hpf H (0-1/HPF) Amorphous Sediment 2+ Urine Bacteria Many (>30) H (None) Ur Culture Indicated? Specimen cultured Urine Test (Negative) SARS-CoV-2 (PCR) (Negative) 04/13/21 04/13/21 04/13/21 Range/Units 18:47 21:30 21:55 WBC (4.5-11.0) X10^3/uL RBC (4.0-5.2) X10^6/uL Hgb (12.0-16.0) g/dL Hct (36-46) % MCV (80-100) fL MCH (26-34) PG MCHC (30-36) % RDW (11.6-14.8) % Plt Count (150-400) X10^3/uL Neut % (Auto) (50-75) % Lymph % (Auto) (25-40) % [place] % (Auto) (3-14) % Eos % (Auto) (2-4) % Baso % (Auto) (0-2) % Neut # (Auto) (7572-1528) /uL Lymph # (Auto) (3183-8278) /uL [place] # (Auto) (0-900) /uL Eos # (Auto) (0-450) /uL Baso # (Auto) (0-100) /uL Sodium (137-145) mmol/L Potassium (3.4-5.1) mmol/L Chloride (98-107) mmol/L Carbon Dioxide (22-32) mmol/L BUN (7-17) mg/dL Creatinine (0.52-1.04) mg/dL Estimated GFR (>60) mL/min BUN/Creatinine Ratio (6-22) Glucose (70-100) mg/dL Hemoglobin A1c (4.0-6.0) % Lactate 0.9 (0.7-2.1) mmol/L Calcium (8.4-10.2) mg/dL Magnesium (1.6-2.3) mg/dL Total Bilirubin (0.2-1.3) mg/dL AST (14-36) IU/L ALT (<35) IU/L Alkaline Phosphatase (38-126) U/L Total Protein (6.3-8.2) g/dL Albumin (3.5-5.0) g/dL Globulin (1.7-4.1) g/dL Albumin/Globulin Ratio (1.0-2.8) Lipase (23-300) U/L Urine Color Urine Appearance Urine pH (4.5-8.0) Ur Specific [place] (1.000-1.035) Urine Protein (Negative) Urine Glucose (UA) (Negative) g/dL Urine Ketones (NEGATIVE) Urine Occult Blood (Negative) Urine Nitrate (Negative) Urine Bilirubin (NEGATIVE) Ur Bilirubin Confirm (Negative) Urine Urobilinogen (0.2) E.U./dL Ur Leukocyte Esterase (NEGATIVE) Urine RBC (0-5/HPF) Urine WBC (0-5/HPF) Ur Squamous Epith Cells (0-5/HPF) Ur Transition Epith Cell (0-5/HPF) Ur Renal Epithelial Cell (0-1/HPF) Amorphous Sediment Urine Bacteria (None) Ur Culture Indicated? Urine Test Negative (Negative) SARS-CoV-2 (PCR) Negative (Negative) Imaging Data CT scan - abdomen/pelvis: Radiologist's Impression: [address] [address] [address] Scan Report Signed Patient: Omayra Morse MR#: [id number] : 1975 Acct:[id number] Age/Sex: 45 / F Date of Service: 04/13/21 Loc: ED Accession Number: [id number] ?? Procedure: CT abdomen pelvis w con Ordering Provider: Charles Whipple D.O. PROCEDURE:? CT ABDOMEN PELVIS W CON ? INDICATIONS:? LLQ and l flank pain ? TECHNIQUE:? After the administration of intravenous contrast, axial sections acquired from the lung bases to the pubic symphysis.? Coronal and sagittal reformats were performed.? For radiation dose reduction, the following was used:? automated exposure control, adjustment of mA and/or kV according to patient size.? ? COMPARISON:? None. ? FINDINGS:? Image quality:? Excellent.? ? Lung bases:? Unremarkable. Heart:? No significant findings. ? ABDOMEN: Liver:? Mild hepatic steatosis and hepatomegaly.? ? Gallbladder:? Cholelithiasis.? No gallbladder wall thickening or pericholecystic inflammatory findings. Biliary ducts:? Unremarkable.? ? Pancreas:? Unremarkable.? ? Spleen:? Unremarkable.? ? Adrenal Glands:? No adrenal gland nodule or mass. Kidneys and Ureters:? There is mucosal hyperenhancement in the renal calices/pelvis ease as well as in the proximal ureters.? Diffuse periureteric fat stranding and fluid.? Mild bilateral perinephric fat stranding.? Uniform and symmetric renal enhancement with no wedge-shaped enhancement defects or hyperenhancing areas identified.? No urinary tract calculus. ? Stomach and Bowel:? Stomach, small bowel loops, and colon are unremarkable.? Peritoneum:? No abnormal intraperitoneal fluid.? No free air.? ? Ventral Wall: ? No hernias.? Abdominal Nodes:? No retroperitoneal or mesenteric adenopathy by size criteria.? Vessels:? Aorta and inferior vena cava are normal in size.? ? PELVIS: Pelvic Organs:? Uterus and adnexa demonstrate no mass or acute finding.? Pelvic Nodes: No enlarged lymph nodes.? Miscellaneous: No hernias are seen. ? ? ? Bones:? No acute or suspicious lesion. ? ? IMPRESSION:? Findings of ascending urinary tract infection and findings s uggestive of developing pyelonephritis.? ? ? Dictated by: Segundo Mauro M.D. on 04/13/2021 at 17:49 ? ? Approved by: Segundo Mauro M.D. on 04/13/2021 at 17:54?? ECG Data Attestation: I personally reviewed and interpreted this ECG as follows: Interpretation: Sinus rhythm Ventricular rate 95 Normal axis Normal QRS Normal QTC No ST T wave changes MDM Narrative Medical decision making narrative: No leukocytosis, lactate unremarkable. Is afebrile but is diaphoretic. CT scan shows what appears to be an ascending urinary tract infection. This does correspond to her symptoms and also her urinalysis. Was given Rocephin. Blood cultures obtained. Patient is ill appearing but not toxic. I do feel patient would benefit from admission to the hospital with IV antibiotics and fluids. Discussed the case with SIMA Carl the [facility] hospital provider who will admit for further evaluation and treatment. Discussed the need for admission with the patient. She expressed understanding and agreement. Discharge Plan Departure Patient Disposition: Admitted As Inpatient Clinical Impression: Pyelonephritis Admit Date/Time: 04/13/21 21:58 Admit Provider: Lexy Carl
--- NOTE | 2021-04-13 18:20 | DI.CT.S_ITS ---
PROCEDURE: CT ABDOMEN PELVIS W CON INDICATIONS: LLQ and l flank pain TECHNIQUE: After the administration of intravenous contrast, axial sections acquired from the lung bases to the pubic symphysis. Coronal and sagittal reformats were performed. For radiation dose reduction, the following was used: automated exposure control, adjustment of mA and/or kV according to patient size. COMPARISON: None. FINDINGS: Image quality: Excellent. Lung bases: Unremarkable. Heart: No significant findings. ABDOMEN: Liver: Mild hepatic steatosis and hepatomegaly. Gallbladder: Cholelithiasis. No gallbladder wall thickening or pericholecystic inflammatory findings. Biliary ducts: Unremarkable. Pancreas: Unremarkable. Spleen: Unremarkable. Adrenal Glands: No adrenal gland nodule or mass. Kidneys and Ureters: There is mucosal hyperenhancement in the renal calices/pelvis ease as well as in the proximal ureters. Diffuse periureteric fat stranding and fluid. Mild bilateral perinephric fat stranding. Uniform and symmetric renal enhancement with no wedge-shaped enhancement defects or hyperenhancing areas identified. No urinary tract calculus. Stomach and Bowel: Stomach, small bowel loops, and colon are unremarkable. Peritoneum: No abnormal intraperitoneal fluid. No free air. Ventral Wall: No hernias. Abdominal Nodes: No retroperitoneal or mesenteric adenopathy by size criteria. Vessels: Aorta and inferior vena cava are normal in size. PELVIS: Pelvic Organs: Uterus and adnexa demonstrate no mass or acute finding. Pelvic Nodes: No enlarged lymph nodes. Miscellaneous: No hernias are seen. Bones: No acute or suspicious lesion. IMPRESSION: Findings of ascending urinary tract infection and findings suggestive of developing pyelonephritis. Dictated by: Segundo Mauro M.D. on 04/13/2021 at 17:49 Approved by: Segundo Mauro M.D. on 04/13/2021 at 17:54
[2021-04-13] MEDS: ONDANSETRON 4 MG/2 ML INJ IV (18:27)
[2021-04-13] MEDS: cefTRIAXone 2,000 MG in SODIUM CHLORIDE 0.9% 100 ML 200 ML IV (19:06)
[2021-04-13 19:30] LABS: Appearance Urine UA CLOUDY; Bilirubin Urine UA 1+ (NEGATIVE); Color Urine UA YELLOW; Glucose Urine UA NEGATIVE (Negative); Ketones Urine UA TRACE (NEGATIVE); Leukocyte Esterase Urine UA 2+ (NEGATIVE); Nitrite Urine UA NEGATIVE (Negative); Occult Blood Urine UA 3+ (Negative); Protein Urine UA 2+ (Negative)
[2021-04-13 19:34] LABS: Pregnancy Test Urine Negative (Negative)
[2021-04-13 19:37] LABS: Ictotest Urine Negative (Negative)
[2021-04-13 19:39] LABS: Amorphous Sediment Urine 2+; Bacteria Urine Many (>30); RBC Urine 30-100/HPF (0-5/HPF); Renal Epithelial Cells Urine 1-5/HPF (0-1/HPF); Squamous Epithelial Cell Urine 1-5 /HPF (0-5/HPF); Transitional Epi Cells Urine 5-10/HPF (0-5/HPF); WBC Urine >100/HPF (0-5/HPF)
[2021-04-13 19:40] LABS: Culture Indicated Urine Specimen Cultured
[2021-04-13] MEDS: KETOROLAC 30 MG/ML VIAL IV (19:43)
[2021-04-13] MEDS: POTASSIUM CHLORIDE IN WATER 10 MEQ/100 ML PIGGYBACK 100 MEQ IV ×2 (19:43→20:54)
[2021-04-13 19:46] LABS: Lactate (Lactic Acid) 2.1 mmol/L (0.7-2.1)
--- NOTE | 2021-04-13 19:52 | PC.NURSE ---
Pt resting with eyes closed, slow to arouse to verbal stimulation. BP 90's/50's, slighy tachypneic with RR 20-26 while sleeping. K noted at 2.7. Pt reports back pain. Dr Whipple notified of above, orders received for 2nd liter of NS, toradol, check lactate, replete K.
[2021-04-13 21:38] LABS: Reflexed Lactate in 2 Hours Y
[2021-04-13] MEDS: LACTATED RINGERS 1,000 ML 1000 ML IV (22:01)
[2021-04-13 22:15] LABS: Lactate 2HR (Lactic Acid Rflx) 0.9 mmol/L (0.7-2.1)
[2021-04-13 22:20] LABS: COVID19 - ADMIT (NP swab/PCR) Negative (Negative)
[2021-04-13] MEDS: SODIUM CHLORIDE 0.9% 1,000 ML 100 ML IV (23:07)
[2021-04-13 23:11] LABS: Magnesium 1.5 mg/dL (1.6-2.3)
[2021-04-14] VITALS (13 sets, daily range): BP systolic 90–108; BP diastolic 60–67; PULSE 65–83; RESP 16–19; TEMP 36–36.6; O2SAT 93–100; BMI 33.3
--- NOTE | 2021-04-14 00:11 | PC.NURSE ---
Pt given snack per request.
[2021-04-14] MEDS: KETOROLAC 30 MG/ML VIAL IV ×3 (03:08→17:44)
--- NOTE | 2021-04-14 03:25 | P.HP_ITS ---
History of Present Illness History of Present Illness Chief complaint: PAINS ACROSS LOWER BACK AND ABD PAIN FAINTED Narrative: Omayra Morse is a 45-year-old female with a past medical history type 2 diabetes, sleep apnea, morbid obesity-Resolved by history of gastric bypass and glossectomy, obesity, depression with anxiety, and fibromyalgia here for evaluation of approximately 5 days of left-sided back discomfort, abdominal pain, nausea, vomiting, malaise, dysuria, frequency, urgency, fever, and diarrhe a.?Abdominal pain diffuse, greatest in the left lower abdomen, positive suprapubic pain.? Patient denies chest pain, shortness of breath, or hx of STI. Patient reports that she has had a UTI in the past several years ago. Upon admit patient's temp 97?, hypotension BP 88/54, HR 70, R 16, O2 saturation 99% on room air. Patient's HGB 10.9, HCT 31.3. Patient demonstrates mild hyponatremia Na 133, hypokalemia potassium 2.9, creatinine 1.75, GFR 31.4, glucose 227, (last known 01 creatinine 0.65, GFR> 60) 1.5, lactate WNL. Urinalysis is positive for infection, urine culture pending. Abdomen pelvis CT demonstrated ascending urinary tract infection and finding suggestive of developing pyelonephritis. Patient admitted for JYOTHI secondary to UTI/pyelonephritis, resulting in hypokalemia, hyponatremia, hypomagnesia as a result of hypovolemia. Patient History Medical History Abnormal Pap smear of cervix Depression Deviated septum Diabetes mellitus Fibromyalgia (05/17/17) Generalized anxiety disorder (02/04/11) GERD (gastroesophageal reflux disease) Homozygous MTHFR mutation C677T Morbid obesity with BMI of 50.0-59.9, adult Sleep apnea Vitamin D deficiency Surgical History History of gastric bypass (01/06/14) History of hand surgery (~2006) Status post delivery (~2009) Status post delivery (~2012) Status post dilation and curettage Status post glossectomy (~2008) Status post tubal ligation (~2012) Family & Social History Family History Grandfather Heart disease Mother Obesity, unspecified obesity severity, unspecified obesity type Grandmother Heart disease Social History: household members spouse,children Prior Living Arrangements Apartment/Condo Safety & Behavioral: Feels Safe in Current Yes Environment Been Physically Hurt or No Threatened By a Person Suicidal Ideation Description None Tobacco & Substance use: Smoking Status Former smoker alcohol intake never alcohol intake frequency other Substance Use Type does not use Meds Home Medications and Allergies Home Medications Medication Instructions Recorded Confirmed Type acetaminophen 500 mg tablet 500 mg PO Q4HP PRN #0 02/24/17 04/14/21 History (Tylenol Extra Strength) zolpidem 10 mg tablet 10 mg PO BEDTIME PRN #30 tab 08/31/18 04/14/21 Rx pregabalin 200 mg capsule 200 mg PO BID #60 cap 09/13/18 04/14/21 Rx citalopram 20 mg tablet 40 mg PO DAILY #60 tab 11/19/18 04/14/21 Rx alprazolam 0.5 mg tablet 0.5 mg PO BID PRN #20 tab 01/14/19 04/14/21 Rx Allergies Allergy/AdvReac Type Severity Reaction Status Date / Time buspirone Allergy Severe Swelling Verified 01/03/21 12:46 of Lip/Tongue/Throat propranolol Allergy Severe Swelling Verified 01/03/21 12:46 of Lip/Tongue/Throat Review of Systems Review of Systems Narrative: All 12 point systems reviewed with the patient and are negative except otherwise documented. Exam Vital Signs (past 8 hours): - 04/13/21 19:30 04/13/21 19:32 04/13/21 20:00 Temperature Pulse Rate 78 78 79 Respiratory Rate 18 19 17 Blood Pressure 88/55 L 90/55 L 88/54 L Pulse Oximetry 96 97 95 04/13/21 20:09 04/13/21 20:30 04/13/21 21:00 Temperature 97.0 F L Pulse Rate 80 75 74 Respiratory Rate 22 18 20 Blood Pressure 85/53 L 89/51 L 83/55 L Pulse Oximetry 97 96 97 04/13/21 21:30 04/13/21 22:00 04/13/21 22:30 Temperature Pulse Rate 73 70 69 Respiratory Rate 16 16 Blood Pressure 83/54 L 88/54 L 80/52 L Pulse Oximetry 98 99 100 01/11/22 22:32 04/13/21 23:00 04/13/21 23:02 Temperature Pulse Rate 68 68 68 Respiratory Rate 11 L 18 18 Blood Pressure 89/59 L 94/60 Pulse Oximetry 99 99 98 04/13/21 23:30 04/14/21 00:04 04/14/21 00:30 Temperature Pulse Rate 70 65 68 Respiratory Rate 17 17 Blood Pressure 96/57 L 94/60 104/66 Pulse Oximetry 99 99 100 04/14/21 01:00 04/14/21 02:48 Temperature Pulse Rate 78 Respiratory Rate 18 Blood Pressure 108/67 Pulse Oximetry 100 95 Oxygen Delivery Method Room Air Oxygen Flow Rate 0 Narrative Exam Narrative: General: Patient is a well-developed, well-nourished female, who is moderately ill appearing, in no acute distress at this time. HEENT: Normocephalic, atraumatic, extraocular muscles intact, oral pharynx is clear and mucous membranes are dry. Neck is supple and symmetric, trachea is midline, no adenopathy, no thyroid enlargement, nontender, no masses palpated. Negative for JVD Chest: Normal AP diameter and contour without kyphoscoliosis, no nasal flaring, retractions, or tachypneic labored Lungs: Auscultation of all lung moe are clear without adventitious sounds, wheezes, rhonchi, or rales. Cardio: S1 & S2 with regular rate and rhythm without murmur, rubs, or gallops, no carotid bruit, no cardiac pulsations present. Abdomen: Soft generalized tenderness, acute tenderness lower left quadrant, unable to palpate for organomegaly, or masses due to tenderness. Bowel sounds are present in all 4 quadrants, Positive bilateral CVA tenderness. Musculoskeletal: Muscle strength and tone are equal within normal limits, no deformity, crepitus, effusions, cyanosis, clubbing or edema present. Full range of motion intact radial and pedal pulses are normal. Skin: pale, cool, dry and intact without rashes, ulcerations or petechiae. Neuro: Alert and orientated x3 when roused, sensation to touch intact, no gross deficits noted of cranial nerves. Psych: Patient has a well-kept appearance, appropriate affect. Objective Labs Result Diagrams: 04/13/21 16:12 04/13/21 16:12 Labs: Laboratory Results - last 24 hr 04/13/21 04/13/21 04/13/21 16:12 16:12 16:12 WBC 5.7 RBC 3.73 L Hgb 10.9 L Hct 31.3 L MCV 83.9 MCH 29.2 MCHC 34.8 RDW 12.8 Plt Count 245 Neut % (Auto) 93.5 H Lymph % (Auto) 3.3 L Martin % (Auto) 2.6 L Eos % (Auto) 0.2 L Baso % (Auto) 0.4 Neut # (Auto) 5400 Lymph # (Auto) 200 L Martin # (Auto) 100 Eos # (Auto) 0 Baso # (Auto) 0 Sodium 133 L Potassium 2.9 L Chloride 99 Carbon Dioxide 27 BUN 15 Creatinine 1.75 H Estimated GFR 31.4 L BUN/Creatinine Ratio 8.6 Glucose 227 H Hemoglobin A1c 6.0 Lactate Calcium 8.5 Magnesium Total Bilirubin 1.0 AST 39 H ALT 27 Alkaline Phosphatase 105 Total Protein 6.7 Albumin 3.3 L Globulin 3.4 Albumin/Globulin Ratio 1.0 Lipase 31 Urine Color Urine Appearance Urine pH Ur Specific Morrison Urine Protein Urine Glucose (UA) Urine Ketones Urine Occult Blood Urine Nitrate Urine Bilirubin Ur Bilirubin Confirm Urine Urobilinogen Ur Leukocyte Esterase Urine RBC Urine WBC Ur Squamous Epith Cells Ur Transition Epith Cell Ur Renal Epithelial Cell Amorphous Sediment Urine Bacteria Ur Culture Indicated? Urine Test SARS-CoV-2 (PCR) 04/13/21 04/13/21 04/13/21 16:12 16:18 18:47 WBC RBC Hgb Hct MCV MCH MCHC RDW Plt Count Neut % (Auto) Lymph % (Auto) Martin % (Auto) Eos % (Auto) Baso % (Auto) Neut # (Auto) Lymph # (Auto) Martin # (Auto) Eos # (Auto) Baso # (Auto) Sodium Potassium Chloride Carbon Dioxide BUN Creatinine Estimated GFR BUN/Creatinine Ratio Glucose Hemoglobin A1c Lactate 2.1 Calcium Magnesium 1.5 L Total Bilirubin AST ALT Alkaline Phosphatase Total Protein Albumin Globulin Albumin/Globulin Ratio Lipase Urine Color Yellow Urine Appearance Cloudy Urine pH 5.0 Ur Specific Morrison 1.020 Urine Protein 2+ H Urine Glucose (UA) Negative Urine Ketones Trace H Urine Occult Blood 3+ H Urine Nitrate Negative Urine Bilirubin 1+ H Ur Bilirubin Confirm Negative Urine Urobilinogen 1.0 Ur Leukocyte Esterase 2+ H Urine RBC 30-100/hpf H Urine WBC >100/hpf H Ur Squamous Epith Cells 1-5 /hpf Ur Transition Epith Cell 5-10/hpf H Ur Renal Epithelial Cell 1-5/hpf H Amorphous Sediment 2+ Urine Bacteria Many (>30) H Ur Culture Indicated? Specimen cultured Urine Test SARS-CoV-2 (PCR) 04/13/21 04/13/21 04/13/21 18:47 21:30 21:55 WBC RBC Hgb Hct MCV MCH MCHC RDW Plt Count Neut % (Auto) Lymph % (Auto) Martin % (Auto) Eos % (Auto) Baso % (Auto) Neut # (Auto) Lymph # (Auto) Martin # (Auto) Eos # (Auto) Baso # (Auto) Sodium Potassium Chloride Carbon Dioxide BUN Creatinine Estimated GFR BUN/Creatinine Ratio Glucose Hemoglobin A1c Lactate 0.9 Calcium Magnesium Total Bilirubin AST ALT Alkaline Phosphatase Total Protein Albumin Globulin Albumin/Globulin Ratio Lipase Urine Color Urine Appearance Urine pH Ur Specific Morrison Urine Protein Urine Glucose (UA) Urine Ketones Urine Occult Blood Urine Nitrate Urine Bilirubin Ur Bilirubin Confirm Urine Urobilinogen Ur Leukocyte Esterase Urine RBC Urine WBC Ur Squamous Epith Cells Ur Transition Epith Cell Ur Renal Epithelial Cell Amorphous Sediment Urine Bacteria Ur Culture Indicated? Urine Test Negative SARS-CoV-2 (PCR) Negative Assessment & Plan Assessment & Plan narrative: Omayra Morse is a 45-year-old female with a past medical history type 2 diabetes, sleep apnea, morbid obesity-Resolved by history of gastric bypass and glossectomy, obesity, depression with anxiety, and fibromyalgia patient admitted for UTI/pyelonephritis early JYOTHI and electrolyte imbalance. Patient requires fluid rehydration and IV antibiotic treatment. 1. UTI with developing pyelonephritis, acute, resulting in early JYOTHI, acute, present on admission -hypotension BP 88/54 -Does not meet SIRs criteria -patient given 1 L LR, 2 L NS, continue hydration with NS@ 100cc/Hr -Rocephin 2 g in ED, followed by 1 g Q 24 hours -Urinalysis is positive for infection, urine culture pending. -Abdomen pelvis CT demonstrated ascending urinary tract infection and finding suggestive of developing pyelonephritis. -blood culture pending 2. Hyponatremia, hypokalemia, hypomagnesia, acute, secondary to volume depletion, from UTI/pyelonephritis, resulting in early JYOTHI, acute, present on admission -Na 133-NS @100cc/hr -potassium 2.9-20mEq in ED -Mag 1.9-2 g IV ordered -creatinine 1.75, GFR 31.4, glucose 227, (last known 04/2020 creatinine 0.65, GFR> 60) -repeat CMP, Mag in AM 3. Depression with anxiety, chronic, present on admission -continue patient's Lexapro, alprazolam, Ambien 4. Fibromyalgia, chronic, present on admission -continue patient's Lyrica 5. Obesity as evidence by BMI of 33.4, acute on chronic, present on admission -dietary consult placed, patient education regarding diet exercise -history of morbid obesity with type 2 diabetes resolved by gastric bypass surgery 6. Hyperglycemia as evidence by admitting glucose 227, acute, present on admission -patient admitted on diabetic protocol -patient placed on low-dose sliding scale -A1c 6.0 Code status: Full Surrogate decision maker: Tato Morse COVID PCR:Negative COVID vaccination: Unknown DVT/VTE prophylaxis:Lovenox 40mg & Scd's Disposition: Patient admitted for observation expected length of stay less than 2 midnights I have utilized all available immediate resources to obtain, update, or review the patient's current medications. I confirmed that the patient's advanced care plan is present, Code status is documented and/or surrogate decision maker is listed in the patient's medical record. Time Spent With Patient Critical Care time: I spent a total of [] minutes of critical care time on this patient's care today; this time is exclusive of procedural time. Scores GCS [place] coma scale eye opening: To sound [place] coma scale verbal response: Orientated Shayla coma scale motor response: Obey commands [place] coma scale total score: 14 SOFA PaO2/FIO2: >=400 mmHg Platelets: >= 150 Bilirubin: < 1.2 mg/dL Hypotension: MAP < 70 mmHg [place] Coma Scale: 13-14 Renal: Creatinine 1.2-1.9 mg/dL SOFA Score: 3
[2021-04-14] MEDS: MAGNESIUM SULFATE 2 GM/50 ML PIGGYBACK IV (04:15)
--- NOTE | 2021-04-14 04:58 | PC.ADMIT ---
Patient admitted earlier to room 211 per wheelchair from ER due to UTI with developing pyelonephritis. Is alert and oriented. Breath sounds CTA with RA sat of 95%. HRR. BP low at 93/64 but is asymptomatic and patient stated she trends low normally. Denied nausea. BT present but abdomen is tender over LLQ. Did complain of 7/10 low back pain so was medicated with Toradol and warm blanket applied to area. Voided with some burning. Able to turn self in bed. Is steady on feet but requested patient call for SBA when up to bathroom due to use of bilateral calf SCD's and fall risk score being moderate. Oriented to bed controls and call light. [email or web address] 04/[address] [place] [address] Admission Note: The patient,Omayra Morse,45 y/o, was given written information regarding hospital policies, unit procedures and contact persons. Patient's smoking status: Former smoker. Vital Signs - 8 hr 04/13/21 21:00 04/13/21 21:30 04/13/21 22:00 Temperature Pulse Rate 74 73 70 Respiratory Rate 20 16 Blood Pressure 83/55 L 83/54 L 88/54 L Pulse Oximetry 97 98 99 04/13/21 22:30 04/13/21 22:32 04/13/21 23:00 Temperature Pulse Rate 69 68 68 Respiratory Rate 16 11 L 18 Blood Pressure 80/52 L 89/59 L Pulse Oximetry 100 99 99 04/13/21 23:02 04/13/21 23:30 04/14/21 00:04 Temperature Pulse Rate 68 70 65 Respiratory Rate 18 17 Blood Pressure 94/60 96/57 L 94/60 Pulse Oximetry 98 99 99 04/14/21 00:30 04/14/21 01:00 04/14/21 02:48 Temperature Pulse Rate 68 78 Respiratory Rate 17 18 Blood Pressure 104/66 108/67 Pulse Oximetry 100 100 95 04/14/21 02:50 Temperature 97.5 F L Pulse Rate 69 Respiratory Rate 18 Blood Pressure 93/64 Pulse Oximetry 95
[2021-04-14 06:41] LABS: Add Manual Diff / Slide Review NO; Basophils Absolute Auto 0 /uL (0-100); Basophils Percent Auto 0.4 % (0-2); Eosinophils Absolute Auto 100 /uL (0-450); Eosinophils Percent Auto 0.8 % (2-4); Hematocrit 29.7 % (36-46); Hemoglobin 10.4 g/dL (12.0-16.0); Lymphocytes Absolute Auto 1100 /uL (1100-4500); Lymphocytes Percent Auto 12.1 % (25-40); Mean Corpuscular HGB Conc 34.9 % (30-36); Mean Corpuscular Hemoglobin 29.5 PG (26-34); Mean Corpuscular Volume 84.5 fL (80-100); Monocytes Absolute Auto 600 /uL (0-900); Monocytes Percent Auto 6.8 % (3-14); Neutrophils Absolute Auto 7000 /uL (1500-7000); Neutrophils Percent Auto 79.9 % (50-75); Platelet Count 238 X10^3/uL (150-400); Red Blood Cell Count 3.52 X10^6/uL (4.0-5.2); White Blood Cell Count 8.7 X10^3/uL (4.5-11.0)
[2021-04-14 06:52] LABS: Alanine Aminotransferase 24 IU/L (<35); Albumin 2.9 g/dL (3.5-5.0); Albumin Globulin Ratio 0.9 (1.0-2.8); Alkaline Phosphatase 87 U/L (38-126); Aspartate Aminotransferase 28 IU/L (14-36); BUN Creatinine Ratio 11.9 (6-22); Bilirubin Total 0.5 mg/dL (0.2-1.3); Blood Urea Nitrogen 16 mg/dL (7-17); Calcium 8.2 mg/dL (8.4-10.2); Carbon Dioxide 28 mmol/L (22-32); Chloride 106 mmol/L (98-107); Estimated Glomerular Filt Rate 42.8 mL/min (>60); Globulin 3.3 g/dL (1.7-4.1); Glucose 121 mg/dL (70-100); HEMOLYSIS < 15 (0-50); Potassium 3.3 mmol/L (3.4-5.1); Sodium 140 mmol/L (137-145); Total Protein 6.2 g/dL (6.3-8.2)
[2021-04-14] MEDS: POTASSIUM CHLORIDE IN WATER 10 MEQ/100 ML PIGGYBACK 100 MEQ IV (08:02)
[2021-04-14] MEDS: CITALOPRAM 10 MG TABLET 40 MG PO (09:03)
[2021-04-14] MEDS: ENOXAPARIN 40 MG/0.4 ML SYRINGE SUBCUT (09:03)
[2021-04-14] MEDS: PREGABALIN 50 MG CAPSULE 200 MG PO ×2 (09:03→21:13)
[2021-04-14] MEDS: SODIUM CHLORIDE 0.9% FLUSH 10 ML IV ×2 (09:03→21:13)
[2021-04-14] MEDS: ACETAMINOPHEN 325 MG TABLET 650 MG PO (09:07)
[2021-04-14] MEDS: cefTRIAXone 1,000 MG in SODIUM CHLORIDE 0.9% 100 ML 200 ML IV (09:15)
[2021-04-14] MEDS: POTASSIUM CHLORIDE IN WATER 10 MEQ/100 ML PIGGYBACK 50 MEQ IV (09:49)
[2021-04-14] MEDS: INFLUENZA VACCINE QIV 0.5 ML SYRINGE IM (10:43)
[2021-04-14] MEDS: POTASSIUM CHLORIDE IN WATER 10 MEQ/100 ML PIGGYBACK 75 MEQ IV ×2 (12:19→14:27)
--- NOTE | 2021-04-14 15:09 | DIET.CONS ---
Dietary Consultation Note Admission Date: 04/13/2021 21:58 Assessment: 45y F admitted with pyelonephritis referred to nutrition for obesity. Pt had gastric bypass in 2013 to help with weight loss and DM2. Chart review shows 30# weight loss in 3mo with positive covid PNA test during that time. Pt endorses losing 15# during covid illness and continued intentional weight loss thereafter. Pt is happy about weight loss and hopes to lose more. Ht: 175.26 cm Wt: 102.5 kg BMI: 33.3 Last BM: 04/13/21 (04/14/21 02:50) MNA: 12 Javier Score: 21 Diet: 04/13/21 Breakfast Carbohydrate Consistent Diet Diet Modifications: Carbohydrate level: Small (2 CHO) Bedtime snack: Yes 04/13/21 16:03 NPO Diet Diet Modifications: NPO Type: Strict Nutrition Percent Meal Consumed 50% 04/14/21 14:51 Labs: RBC 3.52 X10^6/uL (4.0-5.2) L 04/14/21 06:03 Hgb 10.4 g/dL (12.0-16.0) L 04/14/21 06:03 Hct 29.7 % (36-46) L 04/14/21 06:03 Creatinine 1.34 mg/dL (0.52-1.04) H 04/14/21 06:03 Hemoglobin A1c 6.0 % (4.0-6.0) 04/13/21 16:12 Lactate 0.9 mmol/L (0.7-2.1) 04/13/21 21:55 Interventions: 1. Educated pt on preference for slow weight loss to preserve lean body mass and support stable metabolic rate. Encouraged pt to prioritize lean protein intake for this reason. Offered hospital options of fat free yogurt, ONS Ensure Max, and half portions at meals. Provided pt meal menu so she can plan and order meals of her liking within rec. Electronically Signed by: Leonarda Ochoa 04/14/21 15:10 Clinical Dietitian [address] [address]
[2021-04-14] MEDS: SODIUM CHLORIDE 0.9% 1,000 ML 60 ML IV (16:12)
--- NOTE | 2021-04-14 17:51 | CM.DANOTE ---
DCP/Assessment: Reviewed chart. Patient is a 45yr old female admitted to [facility] with back pain. PCP listed is Jan Marcial. Primary payor is 1)[employer]. Met with patient this AM explained CM/SW role. Patient sleepy at time of visit but reports that she does not anticipate any d/c planning needs. Patient reports that she is completely I with all ADL's. P: Anticipate home when stable. CM team to continue to follow if needs arise. KJS Discharge Planning/Care Management CM Discharge Assessment Start: 04/14/21 17:49 Freq: Status: Active Protocol: Document 04/14/21 17:49 KJS (Rec: 04/14/21 17:51 KJS [email or web address]) Discharge Planning Assessment Assigned Assurance Manager Insurance JEWEL William Contact Information Tato Morse (spouse) # [phone] Advance Directives? No History Provided By Patient,Medical Record Prior Living Arrangements Apartment/Condo Household Members spouse,children Type of transporation used prior to Drives own vehicle admit Independent with ADL's Yes Is patient alert and oriented? Yes Barriers to Discharge No Discharge Plan Home Transportation Arrangement Family Whiteboard Updated in Patient Room with Yes name and ext. # of Assurance Manager Insurance Review Status In Process Next Review Type Continued Stay Review
--- NOTE | 2021-04-14 19:11 | PC.NURSE ---
A&Ox4. VSS. Pain 6-7/10 in low back. Alleviated with PRN Toradol and heated blanket. NS running at 60 in right arm PIV. SBA to toilet. Good appetitie. BG on the lower side: 103,86,92. Given juice with meals. Call light within reach, bed low.
--- NOTE | 2021-04-14 21:48 | PC.NURSE ---
Patient is alert and oriented. Breath sounds CTA with RA sat 96%. HRR. BP continues to trend low at 92/60. Denies nausea. BT present and states she is passing flatus. Voiding still with some mild burning but denies frequency or urgency. Is able to move self in bed. Up to bathroom with SBA. Complaining of 5-6/10 low back pain but too early to give Toradol so Santi JULES, informed and is changing pain medication; oncce verified by pharmacy will administer but also using warm blanket to back. Refusing SCD's tonight so reminded to ankle wave when awake. Fall risk score is moderate but alarm not in use as patient is calling for assistance appropriately.
[2021-04-14] MEDS: OXYCODONE IR 5 MG TABLET PO (21:54)
[2021-04-15] MEDS: ACETAMINOPHEN 325 MG TABLET 650 MG PO (00:21)
[2021-04-15 00:50] VITALS: BP 96/56; PULSE 73; RESP 16; TEMP 36.6; O2SAT 95
[2021-04-15] MEDS: OXYCODONE IR 5 MG TABLET PO ×3 (01:17→09:13)
[2021-04-15 04:20] VITALS: BP 98/57; PULSE 95; RESP 16; TEMP 36.6; O2SAT 95
--- NOTE | 2021-04-15 08:24 | P.PN_ITS ---
Subjective Subjective Date Patient Seen: 04/14/21 Interval history: 45-year-old female admitted to the hospital with acute pyelonephritis. Patient continues to feel poorly, she has poor appetite, and reports back pain . Exam Vital Signs (past 8 hours): - 04/15/21 00:50 04/15/21 04:20 Temperature 97.9 F 97.9 F Pulse Rate 73 95 H Respiratory Rate 16 16 Blood Pressure 96/56 L 98/57 L Pulse Oximetry 95 95 Oxygen Delivery Method Room Air Oxygen Flow Rate 0 Narrative Exam Narrative: Ill-appearing female lying in bed Resp Other: Lungs clear to auscultation Cardio Other: Cardiac exam: Regular rate and rhythm normal S1-S2 with a 2/6 systolic ejection murmur GI Other: Abdomen: Soft and nontender, bilateral CVA tenderness Extrem Other: No edema Objective Labs Result Diagrams: 04/14/21 06:03 04/14/21 06:03 Labs: Laboratory Results - last 24 hr 04/14/21 06:03 WBC 8.7 D RBC 3.52 L Hgb 10.4 L Hct 29.7 L MCV 84.5 MCH 29.5 MCHC 34.9 RDW 13.0 Plt Count 238 Neut % (Auto) 79.9 H Lymph % (Auto) 12.1 L [place] % (Auto) 6.8 Eos % (Auto) 0.8 L Baso % (Auto) 0.4 Neut # (Auto) 7000 Lymph # (Auto) 1100 [place] # (Auto) 600 Eos # (Auto) 100 Baso # (Auto) 0 PFSH Medical History Abnormal Pap smear of cervix Depression Deviated septum Diabetes mellitus Fibromyalgia (05/17/17) Generalized anxiety disorder (02/04/11) GERD (gastroesophageal reflux disease) Homozygous MTHFR mutation C677T Morbid obesity with BMI of 50.0-59.9, adult Sleep apnea Vitamin D deficiency Surgical History History of gastric bypass (01/06/14) History of hand surgery (~2006) Status post delivery (~2009) Status post delivery (~2012) Status post dilation and curettage Status post glossectomy (~2008) Status post tubal ligation (~2013) Family History Grandfather Heart disease Mother Obesity, unspecified obesity severity, unspecified obesity type Grandmother Heart disease Social History household members: spouse and children Smoking Status: Former smoker alcohol intake: never substance use type: does not use Assessment & Plan Assessment & Plan narrative: ?UTI with developing pyelonephritis, acute, resulting in early JYOTHI, acute, present on admission ?-hypotension BP 88/54 -Does not meet SIRs criteria -patient given 1 L LR, 2 L NS, continue hydration with NS@ 100cc/Hr -Rocephin 2 g in ED, followed by 1 g Q 24 hours -Urinalysis is positive for infection, urine culture pending.? -Abdomen pelvis CT demonstrated ascending urinary tract infection and finding suggestive of developing pyelonephritis. -blood culture pending -continue antibiotics 2. Hyponatremia, hypokalemia, hypomagnesia, acute, secondary to volume dep letion, from UTI/pyelonephritis, resulting in early JYOTHI, acute, present on admission -Na 133-NS @100cc/hr -potassium 2.9-20mEq in ED -Mag 1.9-2 g IV ordered -creatinine 1.75, GFR 31.4, glucose 227,? (last known 04/2020 creatinine 0.65, GFR> 60) -repeat CMP, Mag in AM 3. Depression with anxiety, chronic, present on admission -continue patient's Lexapro, alprazolam, Ambien 4. Fibromyalgia, chronic, present on admission -continue patient's Lyrica 5. Obesity as evidence by BMI of 33.4, acute on chronic, present on admission -dietary consult placed, patient education regarding diet exercise -history of morbid obesity with type 2 diabetes resolved by gastric bypass surgery 6. Hyperglycemia as evidence by admitting glucose 227, acute, present on admission -patient admitted on diabetic protocol -patient placed on low-dose sliding scale -A1c 6.0 Time Spent With Patient Critical Care time: I spent a total of [] minutes of critical care time on this patient's care today; this time is exclusive of procedural time.
--- NOTE | 2021-04-15 08:28 | P.DS_ITS ---
History of Present Illness History of Present Illness Date Patient Seen: 04/15/21 Time Patient Seen: 08:35 Chief complaint: PAINS ACROSS LOWER BACK AND ABD PAIN FAINTED Narrative: Omayra Morse is a 45-year-old female with a past medical history type 2 diabetes, sleep apnea, morbid obesity-Resolved by history of gastric bypass and glossectomy, obesity, depression with anxiety, and fibromyalgia here for evaluation of approximately 5 days of left-sided back discomfort, abdominal pain, nausea, vomiting, malaise, dysuria, frequency, urgency, fever, and diarrh ea.?Abdominal pain diffuse, greatest in the left lower abdomen, positive suprapubic pain.? Patient denies chest pain, shortness of breath, or hx of STI.? Patient reports that she has had a UTI in the past several years ago.? Upon admit patient's temp 97?, hypotension BP 88/54, HR 70, R 16, O2 saturation 99% on room air.? Patient's HGB 10.9, HCT 31.3.? Patient demonstrates mild hyponatremia Na 133, hypokalemia potassium 2.9, creatinine 1.75, GFR 31.4, glucose 227,? (last known 01 creatinine 0.65, GFR> 60)? 1.5, lactate WNL.? Urinalysis is positive for infection, urine culture pending.? Abdomen pelvis CT demonstrated ascending urinary tract infection and finding suggestive of developing pyelonephritis.? Patient admitted for JYOTHI secondary to UTI/pyelonephritis, resulting in hypokalemia, hyponatremia, hypomagnesia as a result of hypovolemia. Discharge Providers Provider Date of admission: 04/13/21 21:58 Discharge Date: 04/15/21 Primary care physician: Jan Marcial DO Consults: 04/13/21 22:52 Consult to Dietitian, Adult Routine Comment: Reason For Exam: obesity Discharge provider: Omayra Quinn MD Summary Hospital Course Discharge Diagnosis: 1. Severe sepsis secondary to acute pyelonephritis improving 2. Patient presented with hypotension, acute kidney injury, knee urinary tract infection 3. Acute Kidney Injury, present on admission, now resolved 4 fibromyalgia 5. Obesity 6. Sleep apnea Hospital Course: Patient was admitted to the hospital for treatment of acute pyelonephritis. She was mildly hypotensive with a systolic blood pressure of 88/54 initially. With IV hydration , IV antibiotics including ceftriaxone, the patient had improvement in her renal failure. She recieved potassium and magnesium for her hypokalemia and hypomagnesemia. Her urine cultures were positive for ECOLI that is pansensitive. Blood cultures are negative. The patient made slow but steady improvement. She was deemed appropriate for discharge home. Status at Discharge Cognitive/behavioral status at discharge: oriented Functional status at discharge: independent ambulation Overall status at discharge: patient is progressing back to baseline Exam Vital Signs (past 8 hours): - 04/15/21 00:50 04/15/21 04:20 Temperature 97.9 F 97.9 F Pulse Rate 73 95 H Respiratory Rate 16 16 Blood Pressure 96/56 L 98/57 L Pulse Oximetry 95 95 Oxygen Delivery Method Room Air Oxygen Flow Rate 0 Narrative Exam Narrative: Pleasant female in no acute distress Resp Other: Lungs: clear to auscultation Cardio Other: RRR nl Sl S2 2/6 CHIQUITA GI Other: Abd: soft/ non tender/ non distended, Bilateral CVAT Extrem Other: no edema Objective Labs Result Diagrams: 04/14/21 06:03 04/15/21 09:47 Labs: Laboratory Results - last 24 hr 04/14/21 06:03 WBC 8.7 D RBC 3.52 L Hgb 10.4 L Hct 29.7 L MCV 84.5 MCH 29.5 MCHC 34.9 RDW 13.0 Plt Count 238 Neut % (Auto) 79.9 H Lymph % (Auto) 12.1 L Cameron % (Auto) 6.8 Eos % (Auto) 0.8 L Baso % (Auto) 0.4 Neut # (Auto) 7000 Lymph # (Auto) 1100 Cameron # (Auto) 600 Eos # (Auto) 100 Baso # (Auto) 0 PFSH Medical History Abnormal Pap smear of cervix Depression Deviated septum Diabetes mellitus Fibromyalgia (05/17/17) Generalized anxiety disorder (02/04/11) GERD (gastroesophageal reflux disease) Homozygous MTHFR mutation C677T Morbid obesity with BMI of 50.0-59.9, adult Sleep apnea Vitamin D deficiency Surgical History History of gastric bypass (01/06/14) History of hand surgery (~2006) Status post delivery (~2009) Status post delivery (~2012) Status post dilation and curettage Status post glossectomy (~2008) Status post tubal ligation (~2012) Family History Grandfather Heart disease Mother Obesity, unspecified obesity severity, unspecified obesity type Grandmother Heart disease Social History household members: spouse and children Smoking Status: Former smoker alcohol intake: never substance use type: does not use Discharge Assessment & Plan Assessment and Plan Assessment: 1. Severe Sepsis, evidenced by acute renal failure, hypotension, bacturia 2. Acute Pyelonephritis, secondary to ECOLI, improved 3. Acute Renal Failure, present on admission now resolved 4. Hypokalemia 5. Hypomagnesemia 6. Plan of Treatment: Discharge Home. F/U with PCP next week Discharge Plan Discharge Plan Patient Disposition: Home Discharge orders & Medications Prescriptions: New oxycodone 5 mg Tablet 5 mg PO Q3HR PRN (Reason: pain 4-10) Qty: 20 0RF amoxicillin-pot clavulanate [Augmentin] 875-125 mg tablet 1 tab PO Q12H Qty: 20 0RF Continued acetaminophen [Tylenol Extra Strength] 500 MG tablet 500 mg PO Q4HP PRN (Reason: pain) Qty: 0 0RF pregabalin 200 mg capsule 200 mg PO BID Qty: 60 1RF citalopram 20 mg tablet 40 mg PO DAILY Qty: 60 1RF alprazolam 0.5 mg tablet 0.5 mg PO BID PRN (Reason: anxiety) Qty: 20 0RF zolpidem 10 mg tablet 10 mg PO BEDTIME PRN (Reason: sleep) Qty: 30 2RF Follow up/Referrals: Jan Marcial DO [Primary Care Provider] - Discharge Health Status Multidrug resistant organism: No MDRO Diet/Activity/Treatments Diet: Diet as Tolerated Skin/Wound/Dressing Care Report to your healthcare provider any signs of infection, such as:: chills, fever and increased pain Discharge Data Primary Care Provider: Jan Marcial Attending Provider: Lexy Carl
[2021-04-15 09:06] VITALS: BP 102/65; PULSE 80; RESP 18; TEMP 35.7; O2SAT 96
[2021-04-15] MEDS: SODIUM CHLORIDE 0.9% 1,000 ML 60 ML IV (09:06)
[2021-04-15] MEDS: ENOXAPARIN 40 MG/0.4 ML SYRINGE SUBCUT (09:06)
[2021-04-15] MEDS: CITALOPRAM 10 MG TABLET 40 MG PO (09:07)
[2021-04-15] MEDS: PREGABALIN 50 MG CAPSULE 200 MG PO (09:07)
[2021-04-15] MEDS: SODIUM CHLORIDE 0.9% FLUSH 10 ML IV (09:08)
[2021-04-15] MEDS: cefTRIAXone 1,000 MG in SODIUM CHLORIDE 0.9% 100 ML 200 ML IV (09:14)
[2021-04-15 10:17] LABS: BUN Creatinine Ratio 15.5 (6-22); Blood Urea Nitrogen 13 mg/dL (7-17); Carbon Dioxide 30 mmol/L (22-32); Chloride 106 mmol/L (98-107); Estimated Glomerular Filt Rate > 60.0 mL/min (>60); Glucose 127 mg/dL (70-100); HEMOLYSIS < 15 (0-50); Potassium 3.3 mmol/L (3.4-5.1); Sodium 139 mmol/L (137-145)
[2021-04-15 10:45] VITALS: BP 103/69; PULSE 80; O2SAT 96
--- NOTE | 2021-04-15 10:45 | PC.NURSE ---
Ambulate to the bathroom. Pt c/o mild lightheadedness with activity. Vital signs stable. Gaitbelt used for ambulation back to bed. Educated to safety and call light use. Primary RN aware.
[2021-04-15] MEDS: POTASSIUM CHLORIDE 20 MEQ TAB 40 MEQ PO (11:04)
== END 2021-04-15 12:32 | disposition home or self-care (01) ==
LOC: ED 21:40 → AC 22:16
PROVIDERS: Emergency Medicine; Internal Medicine; Admitting Provider Nurse Practitioner Family; Emergency Provider Emergency Medicine; Family Provider Family Medicine; PCP Family Medicine; Referring Provider Emergency Medicine; Visit Provider Nurse Practitioner Family
DX: N10 Acute pyelonephritis (principal); R65.20 Severe sepsis without septic shock; N39.0 Urinary tract infection, site not specified; B96.20 Unspecified Escherichia coli [E. coli] as the cause of diseases classified elsewhere; N17.8 Other acute kidney failure; E11.65 Type 2 diabetes mellitus with hyperglycemia; F32.9 Major depressive disorder, single episode, unspecified; F41.9 Anxiety disorder, unspecified; G47.30 Sleep apnea, unspecified; M79.7 Fibromyalgia; E87.1 Hypo-osmolality and hyponatremia; E87.6 Hypokalemia; E83.42 Hypomagnesemia; Z68.33 Body mass index [BMI] 33.0-33.9, adult; Z87.440 Personal history of urinary (tract) infections; E66.01 Morbid (severe) obesity due to excess calories; Z23 Encounter for immunization; Z20.822 Contact with and (suspected) exposure to COVID-19
CPT/HCPCS: 36415; 74177; 80048; 80053; 81001; 81025; 82962; 83036; 83605; 83690; 83735; 85025; 87040; 87077; 87086; 87186; 87635; 90471; 90656; 93005; 93010; 94760; 96361; 96365; 96366; 96367; 96372; 96375; 96376; 99284; 99406; C9803; G0378; J0696; J1650; J1815; J1885; J2405; J3475; Q2038; Q9967

== ENCOUNTER → 2021-04-20 09:36 | Outpatient (CLI) | payer OTHER, MEDICAID, SELFPAY ==
[2021-04-14 02:50] VITALS: BMI 33.3
[2021-04-20 10:22] LABS: Appearance Urine UA CLEAR; Bilirubin Urine UA NEGATIVE (NEGATIVE); Color Urine UA YELLOW; Glucose Urine UA NEGATIVE (Negative); Ketones Urine UA NEGATIVE (NEGATIVE); Leukocyte Esterase Urine UA TRACE (NEGATIVE); Nitrite Urine UA NEGATIVE (Negative); Occult Blood Urine UA TRACE-INTACT (Negative); Protein Urine UA NEGATIVE (Negative); Specific Gravity Urine UA 1.015 (1.000-1.035); Urobilinogen Urine UA 0.2 E.U./dL (0.2)
[2021-04-20 10:31] LABS: Add Manual Diff / Slide Review NO; Basophils Absolute Auto 0 /uL (0-100); Basophils Percent Auto 0.4 % (0-2); Eosinophils Absolute Auto 0 /uL (0-450); Eosinophils Percent Auto 0.5 % (2-4); Hematocrit 29.8 % (36-46); Hemoglobin 10.3 g/dL (12.0-16.0); Lymphocytes Absolute Auto 1200 /uL (1100-4500); Lymphocytes Percent Auto 20.8 % (25-40); Mean Corpuscular HGB Conc 34.4 % (30-36); Mean Corpuscular Hemoglobin 29.2 PG (26-34); Mean Corpuscular Volume 84.7 fL (80-100); Monocytes Absolute Auto 400 /uL (0-900); Monocytes Percent Auto 6.6 % (3-14); Neutrophils Absolute Auto 4300 /uL (1500-7000); Neutrophils Percent Auto 71.7 % (50-75); Platelet Count 374 X10^3/uL (150-400); Red Blood Cell Count 3.52 X10^6/uL (4.0-5.2); Red Cell Distribution Width 12.7 % (11.6-14.8)
[2021-04-20 10:53] LABS: RBC Urine 0-1/HPF (0-5/HPF); Squamous Epithelial Cell Urine 5-10 /HPF (0-5/HPF); Transitional Epi Cells Urine 0-1/HPF (0-5/HPF); WBC Urine 5-10/HPF (0-5/HPF)
[2021-04-20 10:54] LABS: Bacteria Urine Occasional (0-1); Culture Indicated Urine Cult Not Indicated; Hyaline Casts Urine 1-5/LPF
[2021-04-20 11:07] LABS: HEMOLYSIS < 15 (0-50); Iron 78 ug/dL (37-170)
[2021-04-20 11:19] LABS: Alanine Aminotransferase 19 IU/L (<35); Albumin 3.3 g/dL (3.5-5.0); Albumin Globulin Ratio 1.1 (1.0-2.8); Alkaline Phosphatase 85 U/L (38-126); Aspartate Aminotransferase 24 IU/L (14-36); Bilirubin Total 0.5 mg/dL (0.2-1.3); Blood Urea Nitrogen 15 mg/dL (7-17); Calcium 9.1 mg/dL (8.4-10.2); Carbon Dioxide 32 mmol/L (22-32); Chloride 101 mmol/L (98-107); Estimated Glomerular Filt Rate 55.5 mL/min (>60); Globulin 3.1 g/dL (1.7-4.1); Glucose 132 mg/dL (70-100); HEMOLYSIS < 15 (0-50); Magnesium 1.5 mg/dL (1.6-2.3); Percent Iron Saturation 28 % (15-50); Potassium 3.8 mmol/L (3.4-5.1); Sodium 140 mmol/L (137-145); Total Iron Binding Capacity 279 ug/dL (265-497); Total Protein 6.4 g/dL (6.3-8.2)
[2021-04-20 11:40] LABS: Transferrin 211 mg/dL (206-381)
[2021-04-20 12:02] LABS: Vitamin B12 Reflex MMA if <400 354 pg/mL (239-931)
[2021-04-20 16:25] LABS: HIV 1 & 2 Ab/Ag 4th Gen Combo NEGATIVE (NEGATIVE); Hep C Virus Ab w/Reflex Quant NEGATIVE s/c (NEGATIVE)
[2021-04-22 00:10] LABS: Chlamydia trachomatis NAA Negative (Negative); Neisseria gonorrhoeae NAA Negative (Negative)
[2021-04-22 01:20] LABS: Methylmalonic Acid,Serum 245 nmol/L (0-378)
== END ==
PROVIDERS: Family Provider Family Medicine; PCP Family Medicine; Referring Provider Family Medicine; Visit Provider Family Medicine
DX: Z20.2 Contact with and (suspected) exposure to infections with a predominantly sexual mode of transmission (principal); N12 Tubulo-interstitial nephritis, not specified as acute or chronic; D64.9 Anemia, unspecified; Z98.84 Bariatric surgery status
CPT/HCPCS: 36415; 80053; 81001; 82607; 83540; 83550; 83735; 83921; 85025; 86803; 87389; 87491; 87591

== ENCOUNTER 2021-04-21 10:14 | Emergency (ER) | payer OTHER, MEDICAID, SELFPAY ==
[2021-04-14 02:50] VITALS: BMI 33.3
[2021-04-21] VITALS (10 sets, daily range): BP systolic 104–139; BP diastolic 62–85; PULSE 75–116; RESP 18–22; TEMP 36.8; O2SAT 94–100; BMI 32.0
--- NOTE | 2021-04-21 10:25 | ED_ITS ---
HPI - Female Genitourinary General Chief complaint: Urogenital-Female Stated complaint: kidney infection, Rx not working, severe pain Time Seen by Provider: 04/21/21 10:20 History of Present Illness HPI Narrative: 45-year-old female with history of diabetes and recent admission for pyelo nephritis returns stating that her medications are not working. She had reached out to her primary care provider and was redirected to the emergency department. She states that she is having severe epigastric pain that radiates around to her back as well as bilateral flank pain. She is nauseated but denies vomiting. She has had no fever or chills. She denies any provocation with eating or dri nking. Her symptoms are worse when she moves. She has been using her medications as directed. Related Data Home Medications Medication Instructions Recorded Confirmed acetaminophen 500 mg tablet 500 mg PO Q4HP PRN #0 02/24/17 04/14/21 (Tylenol Extra Strength) Previous Rx's Medication Instructions Recorded zolpidem 10 mg tablet 10 mg PO BEDTIME PRN #30 tab 08/31/18 pregabalin 200 mg capsule 200 mg PO BID #60 cap 09/13/18 citalopram 20 mg tablet 40 mg PO DAILY #60 tab 11/19/18 alprazolam 0.5 mg tablet 0.5 mg PO BID PRN #20 tab 01/14/19 amoxicillin 875 mg-potassium 1 tab PO Q12H #20 tab 04/15/21 clavulanate 125 mg tablet (Augmentin) oxycodone 5 mg tablet 5 mg PO Q3HR PRN #20 tab 04/15/21 ciprofloxacin HCl 500 mg tablet 500 mg PO BID #20 tab 04/21/21 hydrocodone 5 mg-acetaminophen 325 1 tab PO Q4-6H PRN #10 tab 04/21/21 mg tablet ondansetron 4 mg disintegrating 4 mg PO TID-QID PRN #10 tab 04/21/21 tablet Allergies Allergy/AdvReac Type Severity Reaction Status Date / Time buspirone Allergy Severe Swelling Verified 01/03/21 12:46 of Lip/Tongue/Throat propranolol Allergy Severe Swelling Verified 01/03/21 12:46 of Lip/Tongue/Throat Review of Systems Review of Systems Narrative: GENERAL: Denies chills, fatigue, malaise, fever, sweats. HEENT: Denies sinus pain, ear pain, sore throat, difficulty swallowing, dizziness. RESPIRATORY: Denies dyspnea, cough, wheezing, hemoptysis, sputum. CARDIOVASCULAR: Denies chest pain, palpitations, orthopnea, edema, GASTROINTESTINAL: See HPI. : Denies dysuria, frequency, incontinence, hematuria, urinary retention. MUSCULOSKELETAL: denies weakness, joint pain, or bony pain SKIN: Denies rash, skin lesions, or other NEUROLOGIC: Denies weakness, headache, numbness, change in speech, confusion, seizures, incoordination. PSYCHIATRIC: No concerning psychosocial issues. 12 point review of systems is negative except for those stated above Patient History Medical History (Updated 04/21/21 @ 15:20 by Peewee Schmidt DO) Abnormal Pap smear of cervix Depression Deviated septum Diabetes mellitus Fibromyalgia (05/17/17) Generalized anxiety disorder (02/04/11) GERD (gastroesophageal reflux disease) Homozygous MTHFR mutation C677T Morbid obesity with BMI of 50.0-59.9, adult Sleep apnea Vitamin D deficiency Surgical History History of gastric bypass (01/06/14) History of hand surgery (~2006) Status post delivery (~2009) Status post delivery (~2012) Status post dilation and curettage Status post glossectomy (~2008) Status post tubal ligation (~2012) Family History Grandfather Heart disease Mother Obesity, unspecified obesity severity, unspecified obesity type Grandmother Heart disease alcohol intake frequency: other Last Alcoholic Drink: none Substance Use Type: does not use Exam Narrative Exam Narrative: GENERAL: [45] year old patient appears stated age. Well-developed patient, in mild distress. Of his and HEAD: Atraumatic. Normocephalic. EYES: Pupils equal round and reactive. Extraocular motions intact. No scleral icterus. No injection or drainage. ENT: Nose without bleeding, purulent drainage. Throat without erythema, tonsillar hypertrophy or exudate. Airway patent. NECK: Trachea midline. Non tender CARDIOVASCULAR: Regular rate and rhythm without murmurs, gallops, or rubs. RESPIRATORY: Clear to auscultation. Breath sounds equal bilaterally. No wheezes, rales, or rhonchi. GASTROINTESTINAL: Abdomen soft, severe tenderness in the epigastrium right upper quadrant nondistended. EXTREMITIES: No edema or joint tenderness. BACK: Nontender without deformity or crepitance. Bilateral CVA tenderness NEURO: AOx3. SKIN: No rash or erythema of visible areas Initial Vital Signs Initial Vital Signs: Vital Signs Temperature 98.2 F 04/21/21 10:34 Pulse Rate 116 H 04/21/21 10:34 Respiratory Rate 18 04/21/21 10:34 Blood Pressure 113/62 04/21/21 10:34 Pulse Oximetry 99 04/21/21 10:34 Course Orders Ordered: ED Orders 04/21/21 11:13 XR chest 1V Stat RT Consult Eval and Treat NOW 04/21/21 11:17 EKG-12 Lead Stat 04/21/21 11:25 Complete Blood Count AUTO DIFF Stat Comprehensive Metabolic Panel Stat Lactate (Lactic Acid) Stat Lipase Stat Procalcitonin Stat Troponin & CK Cardiac Panel Stat 04/21/21 12:05 Blood Culture Stat 04/21/21 12:22 Urine Microscopic Stat 04/21/21 13:21 US abdomen limited Stat 04/21/21 13:51 CT kidney ureter bladder (KUB) Stat Discontinued Medications Hydromorphone HCl (Hydromorphone 0.5 Mg Inj) 0.5 mg IV NOW ONE Stop: 04/21/21 12:50 Last Admin: 04/21/21 13:35 Dose: 0.5 mg Documented by: GRISELDA Sodium Chloride (Normal Saline 0.9%) 1,000 mls @ 1,000 mls/hr IV BOLUS ONE Stop: 04/21/21 12:12 Last Infusion: 04/21/21 13:36 Dose: 0 mls/hr Documented by: Admin: 04/21/21 12:04 Dose: 1,000 mls/hr Documented by: GRISELDA Sodium Chloride (Normal Saline 0.9%) 1,000 mls @ 1,000 mls/hr IV BOLUS ONE Stop: 04/21/21 12:18 Last Infusion: 04/21/21 14:56 Dose: 0 mls/hr Documented by: Admin: 04/21/21 13:34 Dose: 1,000 mls/hr Documented by: GRISELDA Ketorolac Tromethamine (Ketorolac 30 Mg/Ml Vial) 15 mg IV NOW ONE Stop: 04/21/21 11:20 Last Admin: 04/21/21 12:04 Dose: 15 mg Documented by: GRISELDA Ondansetron HCl (Ondansetron 4 Mg/2 Ml Inj) 4 mg IV NOW ONE Stop: 04/21/21 12:50 Last Admin: 04/21/21 13:36 Dose: 4 mg Documented by: GRISELDA Pantoprazole Sodium (Pantoprazole 40 Mg Vial) 40 mg IV NOW ONE Stop: 04/21/21 12:50 Last Admin: 04/21/21 13:36 Dose: 40 mg Documented by: GRISELDA Vital Signs Vital signs: Vital Signs - 8 hr 04/21/21 10:34 04/21/21 11:18 04/21/21 11:30 Temperature 98.2 F Pulse Rate 116 H 85 81 Respiratory Rate 18 Blood Pressure 113/62 Pulse Oximetry 99 99 99 04/21/21 12:00 04/21/21 12:09 04/21/21 12:20 Temperature Pulse Rate 76 86 116 H Respiratory Rate 22 20 Blood Pressure 139/85 Pulse Oximetry 97 99 99 04/21/21 12:30 04/21/21 13:00 04/21/21 13:30 Temperature Pulse Rate 79 78 75 Respiratory Rate 20 21 21 Blood Pressure 120/68 110/69 116/67 Pulse Oximetry 94 100 99 MDM - Female Genitourinary Lab Data Result diagrams: 04/21/21 11:25 04/21/21 11:25 Labs: Lab Results 04/21/21 04/21/21 04/21/21 Range/Units 11:25 11:25 11:25 WBC 8.9 (4.5-11.0) X10^3/uL RBC 3.50 L (4.0-5.2) X10^6/uL Hgb 10.1 L (12.0-16.0) g/dL Hct 29.7 L (36-46) % MCV 85.0 (80-100) fL MCH 29.0 (26-34) PG MCHC 34.1 (30-36) % RDW 12.9 (11.6-14.8) % Plt Count 371 (150-400) X10^3/uL Neut % (Auto) 68.2 (50-75) % Lymph % (Auto) 23.3 L (25-40) % Scurry % (Auto) 7.4 (3-14) % Eos % (Auto) 0.3 L (2-4) % Baso % (Auto) 0.8 (0-2) % Neut # (Auto) 6000 (0114-8714) /uL Lymph # (Auto) 2100 (9627-0843) /uL [place]urry # (Auto) 700 (0-900) /uL Eos # (Auto) 0 (0-450) /uL Baso # (Auto) 100 (0-100) /uL Sodium 140 (137-145) mmol/L Potassium 3.7 (3.4-5.1) mmol/L Chloride 104 (98-107) mmol/L Carbon Dioxide 31 (22-32) mmol/L BUN 16 (7-17) mg/dL Creatinine 1.32 H (0.52-1.04) mg/dL Estimated GFR 43.5 L (>60) mL/min BUN/Creatinine Ratio 12.1 (6-22) Glucose 101 H (70-100) mg/dL Lactate 1.0 (0.7-2.1) mmol/L Calcium 9.1 (8.4-10.2) mg/dL Total Bilirubin 0.5 (0.2-1.3) mg/dL AST 25 (14-36) IU/L ALT 18 (<35) IU/L Alkaline Phosphatase 77 (38-126) U/L Total Creatine Kinase 36 (30-135) U/L CK-MB (CK-2) TNP CK-MB (CK-2) Rel Index TNP Troponin I < 0.012 (0.01-0.034) ng/mL Total Protein 7.1 (6.3-8.2) g/dL Albumin 3.6 (3.5-5.0) g/dL Globulin 3.5 (1.7-4.1) g/dL Albumin/Globulin Ratio 1.0 (1.0-2.8) Lipase 35 (23-300) U/L Procalcitonin 0.27 (<0.5) ng/mL Urine RBC (0-5/HPF) Urine WBC (0-5/HPF) Ur Squamous Epith Cells (0-5/HPF) Urine Bacteria (None) Ur Culture Indicated? 04/21/21 Range/Units 12:22 WBC (4.5-11.0) X10^3/uL RBC (4.0-5.2) X10^6/uL Hgb (12.0-16.0) g/dL Hct (36-46) % MCV (80-100) fL MCH (26-34) PG MCHC (30-36) % RDW (11.6-14.8) % Plt Count (150-400) X10^3/uL Neut % (Auto) (50-75) % Lymph % (Auto) (25-40) % Scurry % (Auto) (3-14) % Eos % (Auto) (2-4) % Baso % (Auto) (0-2) % Neut # (Auto) (4785-6428) /uL Lymph # (Auto) (4784-0692) /uL Scurry # (Auto) (0-900) /uL Eos # (Auto) (0-450) /uL Baso # (Auto) (0-100) /uL Sodium (137-145) mmol/L Potassium (3.4-5.1) mmol/L Chloride (98-107) mmol/L Carbon Dioxide (22-32) mmol/L BUN (7-17) mg/dL Creatinine (0.52-1.04) mg/dL Estimated GFR (>60) mL/min BUN/Creatinine Ratio (6-22) Glucose (70-100) mg/dL Lactate (0.7-2.1) mmol/L Calcium (8.4-10.2) mg/dL Total Bilirubin (0.2-1.3) mg/dL AST (14-36) IU/L ALT (<35) IU/L Alkaline Phosphatase (38-126) U/L Total Creatine Kinase (30-135) U/L CK-MB (CK-2) CK-MB (CK-2) Rel Index Troponin I (0.01-0.034) ng/mL Total Protein (6.3-8.2) g/dL Albumin (3.5-5.0) g/dL Globulin (1.7-4.1) g/dL Albumin/Globulin Ratio (1.0-2.8) Lipase (23-300) U/L Procalcitonin (<0.5) ng/mL Urine RBC None seen (0-5/HPF) Urine WBC 1-5/hpf (0-5/HPF) Ur Squamous Epith Cells 1-5 /hpf (0-5/HPF) Urine Bacteria None seen (None) Ur Culture Indicated? Cult not indicated Point of Care Testing Test Results Negative Urine Dip Bedside Urine Glucose Negative Bedside Urine Bilirubin - Negative Bedside Urine Ketone - Negative Urine Specific [place] 1.015 Bedside Urine Occult Blood - Negative Bedside Urine pH 7.0 Bedside Urine Protein + 30 Bedside Urine Urobilinogen - Negative Bedside Urine Nitrite - Negative Bedside Urine Leukocytes - Negative Esterase Imaging Data US - abdomen: Radiologist's Impression: [address] [address] Ultrasound Report Signed Patient: Omayra Morse MR#: [id number] : 1975 Acct:[id number] Age/Sex: 45 / F Date of Service: 04/21/21 Loc: ED Accession Number: [id number] ?? Procedure: US abdomen limited Ordering Provider: Peewee Schmidt D.O. PROCEDURE: US ABDOMEN LIMITED ? INDICATIONS:? EPIGASTRIC PAIN ? TECHNIQUE:? Real-time focused scanning was performed of the abdomen, with image d ocumentation.? ? COMPARISON:? [facility], CT, CT ABDOMEN PELVIS W CON, 04/13/2021, 18:39. ? FINDINGS:? ? Liver:? The liver measures 17.8 cm.? There is a normal echotexture.? No intrahepatic biliary ductal dilatation or mass. ? Gallbladder:? There is layering sludge.? Gallbladder wall is 2.6 mm.? No pericholecystic fluid or sonographic Adams's. ? Pancreas:? The pancreas has no mass or ductal dilatation. There is no peripancreatic inflammation. ? Kidney:? There is mild hydronephrosis of the right kidney. ? IMPRESSION:? 1. Gallbladder sludge. 2. Mild right hydronephrosis.? ? ? Dictated by: Parmjit Reinoso M.D. on 04/21/2021 at 13:31 ? ? Approved by: Parmjit Reinoso M.D. on 04/21/2021 at 13:34 ? CT scan - abdomen/pelvis: Radiologist's Impression: [address] [address] [address] Scan Report Signed Patient: Omayra Morse MR#: [id number] : 1975 Acct:[id number] Age/Sex: 45 / F Date of Service: 04/21/21 Loc: ED Accession Number: [id number] ?? Procedure: CT kidney ureter bladder (KUB) Ordering Provider: Peewee Schmidt D.O. PROCEDURE:? CT KIDNEY URETER BLADDER (KUB) ? INDICATIONS:? severe flank pain ? TECHNIQUE:? Axial sections were acquired from the lung bases to the pubic symphysis.? Coronal and sagittal reformats were performed.? For radiation dose reduction, the following was used: ?automated exposure control, adjustment of mA and/or kV according to patient size.? ? COMPARISON:? [facility], CT, CT ABDOMEN PELVIS W [facility], 04/13/2021, 18:39. ? FINDINGS:? Image quality:? Excellent.? ? Lung bases:? Lung bases are clear. Heart:? No significant findings. ? URINARY: Kidney/ureter:? There is mild bilateral hydroureteronephrosis with associated perinephric and periureteral stranding.? This appears slightly more pronounced compared to the prior study.? No obstructing mass, adenopathy or uroliths seen.? In the absence of contrast, no evidence for organized fluid collections or abnormal attenuation of the renal cortex on either side. ? Bladder:? Normal wall thickness. No stones. ? ? ? ABDOMEN: Liver:? Unremarkable.? ? Gallbladder:? Multiple gallstones as before.? No CT evidence for acute cholecystitis. Biliary ducts:? Unremarkable.? ? Pancreas:? Unremarkable.? ? Spleen:? Unremarkable.? ? Adrenal Glands:? Unremarkable.? ? ? Stomach and Bowel:? Stomach, small bowel loops, and colon are unremarkable with stable postsurgical changes from prior gastric bypass procedure..? Normal appendix. Peritoneum:? No abnormal intraperitoneal fluid.? No free air.? ? Ventral Wall: ? No hernia.? Abdominal Nodes:? No enlarged retroperitoneal or mesenteric lymph nodes.? Vessels:? Aorta and inferior vena cava are normal in size.? ? PELVIS: Pelvic Organs:? Reproductive organs are unremarkable as imaged. Pelvic Nodes: Unremarkable. Miscellaneous: No inguinal hernias are seen. ? ? ? Bones: No acute vertebral body compression fractures. Multilevel spondylitic changes throughout the imaged spine.? No suspicious osseous lesions. ? IMPRESSION:? ? Mild bilateral hydroureteronephrosis with persistent but increased prominence of bilateral perinephric and periureteral stranding.? No evidence to suggest organized fluid collection.? Homogeneous renal cortical attenuation although evaluation is limited secondary to absence of intravenous contrast.? No evidence for obstructive uroliths, mass lesion, or adenopathy.? Findings are again concerning for progression of ascending urinary tract infection with possible pyelonephritis. ? Cholelithiasis without CT evidence for acute cholecystitis. ? Other chronic findings as above. ? ? ? Dictated by: Jan Estrada M.D. on 04/21/2021 at 14:41 ? ? Approved by: Jan Estrada M.D. on 04/21/2021 at 14:51 ? MDM Narrative Medical decision making narrative: Patient returns with a recurrence of the symptoms that brought her in a few days ago, she has been diagnosed with pyelonephritis, admitted for further evaluation and stabilization of her condition and discharged home with pain control and antibiotics (Augmentin). She has been taking her medications as directed but has a recurrence of her discomfort. She has had no fever or chills and is nauseated but denies any vomiting. Her labs and imaging are very reassuring. Though culture and sensitivity would suggest Augmentin is appropriate, given evolution of her symptoms we discussed changing her antibiotic to quinolones. Her pain is well controlled and she is tolerating orals. Return precautions discussed and questions have been answered to her apparent satisfaction Discharge Plan Departure Patient Disposition: Home Clinical Impression: Pyelonephritis Instructions: DI for Kidney Infection Activity Restrictions/Additional Instructions: *You have been diagnosed with [kidney infection. Your history, physical exam, labs and CT scan are very reassuring. *What to do: *Please continue to take your regular medications as directed. [x ] New medication prescriptions sent to your pharmacy: [ [facility]] [ ] New medication written as a paper prescription [ ] No new medications given *Please follow up with your primary care provider in 2-3 days, call for an appointment. Let them know you were seen in the Emergency Department and that we ask that you be seen in follow up. We will electronically transmit a record of today's note if your PCP is in our system *If you do not have a primary care provider please contact the [facility] Resource line at [phone]. They will ask some questions about your medical history and help get you set up with a doctor in the community. *Return to Emergency Department if you should have any new, worsening or concerning symptoms, such as [fever greater than 101 F, shaking chills, worsening pain, persistent vomiting or other bothersome symptoms] Prescriptions: New ciprofloxacin HCl 500 mg tablet 500 mg PO BID Qty: 20 0RF ondansetron 4 mg tablet,disintegrating 4 mg PO TID-QID PRN (Reason: nausea and vomiting) Qty: 10 0RF hydrocodone-acetaminophen 5-325 mg tablet 1 tab PO Q4-6H PRN (Reason: pain) Qty: 10 0RF No Action acetaminophen [Tylenol Extra Strength] 500 MG tablet 500 mg PO Q4HP PRN (Reason: pain) Qty: 0 0RF pregabalin 200 mg capsule 200 mg PO BID Qty: 60 1RF citalopram 20 mg tablet 40 mg PO DAILY Qty: 60 1RF alprazolam 0.5 mg tablet 0.5 mg PO BID PRN (Reason: anxiety) Qty: 20 0RF zolpidem 10 mg tablet 10 mg PO BEDTIME PRN (Reason: sleep) Qty: 30 2RF oxycodone 5 mg Tablet 5 mg PO Q3HR PRN (Reason: pain 4-10) Qty: 20 0RF amoxicillin-pot clavulanate [Augmentin] 875-125 mg tablet 1 tab PO Q12H Qty: 20 0RF Referrals: Jan Marcial DO [Primary Care Provider] -
--- NOTE | 2021-04-21 11:13 | DI.RAD.S_ITS ---
PROCEDURE: XR CHEST 1V INDICATIONS: suspected sepsis TECHNIQUE: One view of the chest was acquired. COMPARISON: [facility], , CHEST 1 VIEW, 10/20/2015, 19:18. FINDINGS: Surgical changes and devices: None. Lungs and pleura: Lungs are clear. No pleural effusions or pneumothorax. Mediastinum: Mediastinal contours appear normal. Heart size is normal. Bones and chest wall: No suspicious bony lesions. Overlying soft tissues appear unremarkable. IMPRESSION: No acute cardiopulmonary disease. Dictated by: Bernarda Borrero M.D. on 04/21/2021 at 11:24 Approved by: Bernarda Borrero M.D. on 04/21/2021 at 11:25
[2021-04-21 11:35] LABS: Add Manual Diff / Slide Review NO; Basophils Absolute Auto 100 /uL (0-100); Basophils Percent Auto 0.8 % (0-2); Eosinophils Absolute Auto 0 /uL (0-450); Eosinophils Percent Auto 0.3 % (2-4); Hematocrit 29.7 % (36-46); Hemoglobin 10.1 g/dL (12.0-16.0); Lymphocytes Absolute Auto 2100 /uL (1100-4500); Lymphocytes Percent Auto 23.3 % (25-40); Mean Corpuscular HGB Conc 34.1 % (30-36); Monocytes Absolute Auto 700 /uL (0-900); Monocytes Percent Auto 7.4 % (3-14); Neutrophils Absolute Auto 6000 /uL (1500-7000); Neutrophils Percent Auto 68.2 % (50-75); Platelet Count 371 X10^3/uL (150-400); Red Cell Distribution Width 12.9 % (11.6-14.8); White Blood Cell Count 8.9 X10^3/uL (4.5-11.0)
[2021-04-21 11:47] LABS: Alanine Aminotransferase 18 IU/L (<35); Albumin 3.6 g/dL (3.5-5.0); Alkaline Phosphatase 77 U/L (38-126); Aspartate Aminotransferase 25 IU/L (14-36); BUN Creatinine Ratio 12.1 (6-22); Bilirubin Total 0.5 mg/dL (0.2-1.3); Blood Urea Nitrogen 16 mg/dL (7-17); Calcium 9.1 mg/dL (8.4-10.2); Carbon Dioxide 31 mmol/L (22-32); Chloride 104 mmol/L (98-107); Creatine Kinase 36 U/L (30-135); Estimated Glomerular Filt Rate 43.5 mL/min (>60); Globulin 3.5 g/dL (1.7-4.1); Glucose 101 mg/dL (70-100); Lipase 35 U/L (23-300); Potassium 3.7 mmol/L (3.4-5.1); Sodium 140 mmol/L (137-145); Total Protein 7.1 g/dL (6.3-8.2)
[2021-04-21 11:56] LABS: HEMOLYSIS < 15 (0-50)
[2021-04-21] MEDS: KETOROLAC 30 MG/ML VIAL 15 MG IV (12:04)
[2021-04-21] MEDS: SODIUM CHLORIDE 0.9% 1,000 ML 1000 ML IV ×2 (12:04→13:34)
[2021-04-21 12:48] LABS: Troponin I < 0.012 ng/mL (0.01-0.034)
[2021-04-21 12:51] LABS: Procalcitonin 0.27 ng/mL (<0.5)
--- NOTE | 2021-04-21 13:21 | DI.US.S_ITS ---
PROCEDURE: US ABDOMEN LIMITED INDICATIONS: EPIGASTRIC PAIN TECHNIQUE: Real-time focused scanning was performed of the abdomen, with image documentation. COMPARISON: [facility], CT, CT ABDOMEN PELVIS W CON, 04/13/2021, 18:39. FINDINGS: Liver: The liver measures 17.8 cm. There is a normal echotexture. No intrahepatic biliary ductal dilatation or mass. Gallbladder: There is layering sludge. Gallbladder wall is 2.6 mm. No pericholecystic fluid or sonographic Adams's. Pancreas: The pancreas has no mass or ductal dilatation. There is no peripancreatic inflammation. Kidney: There is mild hydronephrosis of the right kidney. IMPRESSION: 1. Gallbladder sludge. 2. Mild right hydronephrosis. Dictated by: Parmjit Reinoso M.D. on 04/21/2021 at 13:31 Approved by: Parmjit Reinoso M.D. on 04/21/2021 at 13:34
[2021-04-21] MEDS: HYDROMORPHONE 0.5 MG INJ IV (13:35)
[2021-04-21] MEDS: ONDANSETRON 4 MG/2 ML INJ IV (13:36)
[2021-04-21] MEDS: PANTOPRAZOLE 40 MG VIAL IV (13:36)
--- NOTE | 2021-04-21 13:51 | DI.CT.S_ITS ---
PROCEDURE: CT KIDNEY URETER BLADDER (KUB) INDICATIONS: severe flank pain TECHNIQUE: Axial sections were acquired from the lung bases to the pubic symphysis. Coronal and sagittal reformats were performed. For radiation dose reduction, the following was used: automated exposure control, adjustment of mA and/or kV according to patient size. COMPARISON: [facility], CT, CT ABDOMEN PELVIS W CON, 04/13/2021, 18:39. FINDINGS: Image quality: Excellent. Lung bases: Lung bases are clear. Heart: No significant findings. URINARY: Kidney/ureter: There is mild bilateral hydroureteronephrosis with associated perinephric and periureteral stranding. This appears slightly more pronounced compared to the prior study. No obstructing mass, adenopathy or uroliths seen. In the absence of contrast, no evidence for organized fluid collections or abnormal attenuation of the renal cortex on either side. Bladder: Normal wall thickness. No stones. ABDOMEN: Liver: Unremarkable. Gallbladder: Multiple gallstones as before. No CT evidence for acute cholecystitis. Biliary ducts: Unremarkable. Pancreas: Unremarkable. Spleen: Unremarkable. Adrenal Glands: Unremarkable. Stomach and Bowel: Stomach, small bowel loops, and colon are unremarkable with stable postsurgical changes from prior gastric bypass procedure.. Normal appendix. Peritoneum: No abnormal intraperitoneal fluid. No free air. Ventral Wall: No hernia. Abdominal Nodes: No enlarged retroperitoneal or mesenteric lymph nodes. Vessels: Aorta and inferior vena cava are normal in size. PELVIS: Pelvic Organs: Reproductive organs are unremarkable as imaged. Pelvic Nodes: Unremarkable. Miscellaneous: No inguinal hernias are seen. Bones: No acute vertebral body compression fractures. Multilevel spondylitic changes throughout the imaged spine. No suspicious osseous lesions. IMPRESSION: Mild bilateral hydroureteronephrosis with persistent but increased prominence of bilateral perinephric and periureteral stranding. No evidence to suggest organized fluid collection. Homogeneous renal cortical attenuation although evaluation is limited secondary to absence of intravenous contrast. No evidence for obstructive uroliths, mass lesion, or adenopathy. Findings are again concerning for progression of ascending urinary tract infection with possible pyelonephritis. Cholelithiasis without CT evidence for acute cholecystitis. Other chronic findings as above. Dictated by: Jan Estrada M.D. on 04/21/2021 at 14:41 Approved by: Jan Estrada M.D. on 04/21/2021 at 14:51
[2021-04-21 13:57] LABS: Bacteria Urine None Seen; Culture Indicated Urine Cult Not Indicated; RBC Urine None Seen (0-5/HPF); Squamous Epithelial Cell Urine 1-5 /HPF (0-5/HPF); WBC Urine 1-5/HPF (0-5/HPF)
== END 2021-04-21 15:37 | disposition home or self-care (01) ==
PROVIDERS: Emergency Provider Emergency Medicine; Family Provider Family Medicine; PCP Family Medicine
DX: N12 Tubulo-interstitial nephritis, not specified as acute or chronic (principal); R10.13 Epigastric pain
CPT/HCPCS: 36415; 71045; 74176; 76705; 80053; 81003; 81015; 81025; 82550; 83605; 83690; 84145; 84484; 85025; 87040; 93005; 93010; 96361; 96374; 96375; 99284; C9113; J1170; J1885; J2405

== ENCOUNTER 2021-05-01 04:47 | Emergency (ER) | payer OTHER, MEDICAID, SELFPAY ==
[2021-04-14 02:50] VITALS: BMI 33.3
[2021-05-01 04:55] VITALS: BP 127/73; PULSE 88; RESP 22; TEMP 36.6; O2SAT 98
--- NOTE | 2021-05-01 05:00 | ED.PSYCH ---
HPI - Psych <Chantelle Huang, DO - Last Filed: 05/02/21 00:53> General Chief Complaint: Psychiatric Symptoms Stated Complaint: psych symptoms Time Seen by Provider: 05/01/21 04:57 Source: patient Mode of arrival: Ambulatory History of Present Illness HPI Narrative: Patient is a 45-year-old female history of anxiety, diabetes, depression presenting voluntarily by police with hallucinations. She says she has not slept in the last 3 days. She says she has racing thoughts and just can not sleep. She says that she sees people whom she knows but she knows they are not there. She does not hear voices. She said the hallucinations scared her tonight which prompted her to call police. She denies any suicidal or homicidal ideations. No prior history of mental illness. Police report possible substance use. She actually was admitted here recently for kidney infection April 13 through the . She returned on the with persistent infection at that time she is placed on Cipro. She says those symptoms have all improved and resolved she has no flank pain or painful or frequent urination. She said she was treated for yeast infection as well. She denies any fevers chills abdominal pain nausea vomiting or any other symptoms. She has some obvious twitching while talking to her. Related Data Home Medications Medication Instructions Recorded Confirmed acetaminophen 500 mg tablet 500 mg PO Q4HP PRN #0 02/24/17 04/14/21 (Tylenol Extra Strength) Previous Rx's Medication Instructions Recorded zolpidem 10 mg tablet 10 mg PO BEDTIME PRN #30 tab 08/31/18 pregabalin 200 mg capsule 200 mg PO BID #60 cap 09/13/18 citalopram 20 mg tablet 40 mg PO DAILY #60 tab 11/19/18 alprazolam 0.5 mg tablet 0.5 mg PO BID PRN #20 tab 01/14/19 amoxicillin 875 mg-potassium 1 tab PO Q12H #20 tab 04/15/21 clavulanate 125 mg tablet (Augmentin) oxycodone 5 mg tablet 5 mg PO Q3HR PRN #20 tab 04/15/21 ciprofloxacin HCl 500 mg tablet 500 mg PO BID #20 tab 04/21/21 hydrocodone 5 mg-acetaminophen 325 1 tab PO Q4-6H PRN #10 tab 04/21/21 mg tablet ondansetron 4 mg disintegrating 4 mg PO TID-QID PRN #10 tab 04/21/21 tablet Allergies Allergy/AdvReac Type Severity Reaction Status Date / Time buspirone Allergy Severe Swelling Verified 01/03/21 12:46 of Lip/Tongue/Throat propranolol Allergy Severe Swelling Verified 01/03/21 12:46 of Lip/Tongue/Throat Review of Systems <Chantelle Huang DO - Last Filed: 05/02/21 00:53> Review of Systems Narrative: GENERAL: Denies chills, fatigue, malaise, fever, sweats, travel HEENT: Denies sinus pain, ear pain, sore throat, difficulty swallowing, neck pain RESPIRATORY: Denies dyspnea, cough, wheezing, hemoptysis, sputum. CARDIOVASCULAR: Denies chest pain, palpitations, orthopnea, edema GASTROINTESTINAL: Denies nausea, vomiting, abdominal pain, diarrhea, constipation, melena. : See HPI MUSCULOSKELETAL: Denies weakness, joint pain, or bony pain SKIN: No rash, no erythema, no pruritus NEUROLOGIC: Denies weakness, dizziness, headache, numbness, change in speech, confusion PSYCHIATRIC: See HPI 12 point review of systems is negative except for those stated above and HPI Patient History <Chantelle Huang DO - Last Filed: 05/02/21 00:53> Medical History (Updated 05/01/21 @ 08:35 by Taisha Pruitt MD) Abnormal Pap smear of cervix Depression Deviated septum Diabetes mellitus Fibromyalgia (05/17/17) Generalized anxiety disorder (02/04/11) GERD (gastroesophageal reflux disease) Homozygous MTHFR mutation [id number] Morbid obesity with BMI of 50.0-59.9, adult Sleep apnea Vitamin D deficiency Surgical History History of gastric bypass (01/06/14) History of hand surgery (~2006) Status post delivery (~2009) Status post delivery (~2012) Status post dilation and curettage Status post glossectomy (~2008) Status post tubal ligation (~2012) Family History Grandfather Heart disease Mother Obesity, unspecified obesity severity, unspecified obesity type Grandmother Heart disease Social History household members: spouse and children Smoking Status: Former smoker alcohol intake: never substance use type: does not use Smoking Status: Former smoker alcohol intake frequency: other Substance Use Type: does not use Exam <Chantelle Huang DO - Last Filed: 05/02/21 00:53> Initial Vital Signs Initial Vital Signs: Vital Signs Temperature 98 F 05/01/21 04:55 Pulse Rate 88 05/01/21 04:55 Respiratory Rate 22 05/01/21 04:55 Blood Pressure 127/73 05/01/21 04:55 Pulse Oximetry 98 05/01/21 04:55 GENERAL: Alert 45 year old female appears older than stated age in no acute distress. HEENT: Head atraumatic,EOMI, pupils reactive, face symmetric, moist mucous membranes CARDIOVASCULAR: Regular rate and rhythm without murmurs, rubs or gallops. RESPIRATORY: Breath sounds equal bilaterally, no wheezes rales or rhonchi. ABDOMEN: Soft, nontender. Normoactive bowel sounds all 4 quadrants. No guarding or rebound. : No CVA tenderness EXTREMITIES: Normal range of motion, no clubbing or edema. Neurovascularly intact NEUROLOGICAL: Alert and oriented x4.Normal gait and speech. Resting twitching mostly on left side SKIN: Warm, dry, no laceration, no petechiae, no rashes or lesions. <Taisha Pruitt MD - Last Filed: 05/01/21 08:35> Initial Vital Signs Initial Vital Signs: Vital Signs Temperature 98 F 05/01/21 04:55 Pulse Rate 88 05/01/21 04:55 Respiratory Rate 22 05/01/21 04:55 Blood Pressure 127/73 05/01/21 04:55 Pulse Oximetry 98 05/01/21 04:55 Course <Chantelle Huang DO - Last Filed: 05/02/21 00:53> Orders Ordered: ED Orders 05/01/21 05:12 CT head/brain wo con Stat 05/01/21 05:14 Urine Drug Screen, Rapid Stat 05/01/21 06:46 Complete Blood Count AUTO DIFF Stat Comprehensive Metabolic Panel Stat Ethanol (ETOH) Stat TSH w/ Reflex to FT4 Stat Vital Signs Vital signs: Vital Signs - 8 hr 05/01/21 04:55 05/01/21 05:47 Temperature 98 F Pulse Rate 88 80 Respiratory Rate 22 20 Blood Pressure 127/73 129/71 Pulse Oximetry 98 97 <Taisha Pruitt MD - Last Filed: 05/01/21 08:35> Course Course Narrative: 830 am care is assumed. Patient is independently reexamined. She states that she was able to sleep a bit last night. She recognizes it was her methamphetamine that caused her symptoms. She states that her drug supplier is currently incarcerated and she has no more methamphetamine immediately available to her and has every intention av not take continuing its use. She states that she has an appointment at 9:00 a.m. to poultry picking machine tender a rental car and her will be able to pick her up and she is requesting discharge. She states that she has an appointment with her primary care physician, Dr. Air dorsey [place], on Monday. She notes that in the past Ambien has been helpful with sleep and she has a brief prescription for this available to her at home. She also notes that she has a prescription for Xanax should she feel increasingly agitated during the day and again has a prescription available to her at home. At this point she is, alert oriented making appropriate decisions and showing appropriate insight. She is physically safe and has a responsible adult to pick her up and care for her. I believe she is safe for home discharge. Orders Ordered: ED Orders 05/01/21 05:12 CT head/brain wo con Stat 05/01/21 05:14 Urine Drug Screen, Rapid Stat 05/01/21 06:46 Complete Blood Count AUTO DIFF Stat Comprehensive Metabolic Panel Stat Ethanol (ETOH) Stat TSH w/ Reflex to FT4 Stat Vital Signs Vital signs: Vital Signs - 8 hr 05/01/21 04:55 05/01/21 05:47 Temperature 98 F Pulse Rate 88 80 Respiratory Rate 22 20 Blood Pressure 127/73 129/71 Pulse Oximetry 98 97 MDM - Psych <Chantelle Huang DO - Last Filed: 05/02/21 00:53> Lab Data Result diagrams: 05/01/21 06:46 05/01/21 06:46 Labs: Lab Results 05/01/21 05/01/21 05/01/21 Range/Units 05:14 06:46 06:46 WBC 5.7 (4.5-11.0) X10^3/uL RBC 3.67 L (4.0-5.2) X10^6/uL Hgb 10.8 L (12.0-16.0) g/dL Hct 31.6 L (36-46) % MCV 86.0 (80-100) fL MCH 29.4 (26-34) PG MCHC 34.2 (30-36) % RDW 14.1 (11.6-14.8) % Plt Count 241 (150-400) X10^3/uL Neut % (Auto) 57.4 (50-75) % Lymph % (Auto) 33.3 (25-40) % Charlotte % (Auto) 8.1 (3-14) % Eos % (Auto) 0.4 L (2-4) % Baso % (Auto) 0.8 (0-2) % Neut # (Auto) 3300 (4546-8672) /uL Lymph # (Auto) 1900 (3830-6774) /uL Charlotte # (Auto) 500 (0-900) /uL Eos # (Auto) 0 (0-450) /uL Baso # (Auto) 0 (0-100) /uL Sodium 140 (137-145) mmol/L Potassium 3.7 (3.4-5.1) mmol/L Chloride 108 H (98-107) mmol/L Carbon Dioxide 27 (22-32) mmol/L BUN 16 (7-17) mg/dL Creatinine 0.89 (0.52-1.04) mg/dL Estimated GFR > 60.0 (>60) mL/min BUN/Creatinine Ratio 18.0 (6-22) Glucose 153 H (70-100) mg/dL Calcium 9.2 (8.4-10.2) mg/dL Total Bilirubin 0.7 (0.2-1.3) mg/dL AST 27 (14-36) IU/L ALT 13 (<35) IU/L Alkaline Phosphatase 75 (38-126) U/L Total Protein 6.8 (6.3-8.2) g/dL Albumin 3.7 (3.5-5.0) g/dL Globulin 3.1 (1.7-4.1) g/dL Albumin/Globulin Ratio 1.2 (1.0-2.8) TSH (0.47-4.68) uIU/mL U Opiates 300ng/mL cut Negative (Negative) Ur Oxycodone Screen Negative (Negative) Urine Methadone Screen Negative (Negative) Ur Barbiturates Screen Negative (Negative) U Tricyclic Antidepress Negative (Negative) Ur Phencyclidine Scrn Negative (Negative) Ur Amphetamines Screen Positive H (Negative) U Methamphetamines Scrn Positive H (Negative) Ur MDMA Scrn (Ecstasy) Negative (Negative) U Benzodiazepines Scrn Negative (Negative) Urine Cocaine Screen Negative (Negative) U Marijuana (THC) Screen Negative (Negative) Ethyl Alcohol < 10 ( - 10) mg/dL 05/01/21 Range/Units 06:46 WBC (4.5-11.0) X10^3/uL RBC (4.0-5.2) X10^6/uL Hgb (12.0-16.0) g/dL Hct (36-46) % MCV (80-100) fL MCH (26-34) PG MCHC (30-36) % RDW (11.6-14.8) % Plt Count (150-400) X10^3/uL Neut % (Auto) (50-75) % Lymph % (Auto) (25-40) % Charlotte % (Auto) (3-14) % Eos % (Auto) (2-4) % Baso % (Auto) (0-2) % Neut # (Auto) (7041-4707) /uL Lymph # (Auto) (4110-2594) /uL Charlotte # (Auto) (0-900) /uL Eos # (Auto) (0-450) /uL Baso # (Auto) (0-100) /uL Sodium (137-145) mmol/L Potassium (3.4-5.1) mmol/L Chloride (98-107) mmol/L Carbon Dioxide (22-32) mmol/L BUN (7-17) mg/dL Creatinine (0.52-1.04) mg/dL Estimated GFR (>60) mL/min BUN/Creatinine Ratio (6-22) Glucose (70-100) mg/dL Calcium (8.4-10.2) mg/dL Total Bilirubin (0.2-1.3) mg/dL AST (14-36) IU/L ALT (<35) IU/L Alkaline Phosphatase (38-126) U/L Total Protein (6.3-8.2) g/dL Albumin (3.5-5.0) g/dL Globulin (1.7-4.1) g/dL Albumin/Globulin Ratio (1.0-2.8) TSH 1.51 (0.47-4.68) uIU/mL U Opiates 300ng/mL cut (Negative) Ur Oxycodone Screen (Negative) Urine Methadone Screen (Negative) Ur Barbiturates Screen (Negative) U Tricyclic Antidepress (Negative) Ur Phencyclidine Scrn (Negative) Ur Amphetamines Screen (Negative) U Methamphetamines Scrn (Negative) Ur MDMA Scrn (Ecstasy) (Negative) U Benzodiazepines Scrn (Negative) Urine Cocaine Screen (Negative) U Marijuana (THC) Screen (Negative) Ethyl Alcohol ( - 10) mg/dL Point of Care Testing Test Results Negative Urine Dip Bedside Urine Glucose Negative Bedside Urine Bilirubin + 1 Bedside Urine Ketone - Negative Urine Specific Francis 1.02 Bedside Urine Occult Blood - Negative Bedside Urine pH 6.5 Bedside Urine Protein ++ 100 Bedside Urine Urobilinogen 1+ 2mg Bedside Urine Nitrite - Negative Bedside Urine Leukocytes - Negative Esterase Imaging Data CT scan - head: Radiologist's Impression: Preliminary report no acute intracranial abnormality MDM Narrative Medical decision making narrative: Patient complains of hallucinations with a recent infection. Awaiting blood work. Urine is positive for methamphetamine she has not been sleeping for the last 3 days contributing to her hallucinations. She is not suicidal or homicidal does not seem to be gravely disabled. Awaiting for blood work and patient signed out Dr. Pruitt. <Taisha Pruitt MD - Last Filed: 05/01/21 08:35> Lab Data Labs: Lab Results 05/01/21 05/01/21 05/01/21 Range/Units 05:14 06:46 06:46 WBC 5.7 (4.5-11.0) X10^3/uL RBC 3.67 L (4.0-5.2) X10^6/uL Hgb 10.8 L (12.0-16.0) g/dL Hct 31.6 L (36-46) % MCV 86.0 (80-100) fL MCH 29.4 (26-34) PG MCHC 34.2 (30-36) % RDW 14.1 (11.6-14.8) % Plt Count 241 (150-400) X10^3/uL Neut % (Auto) 57.4 (50-75) % Lymph % (Auto) 33.3 (25-40) % Charlotte % (Auto) 8.1 (3-14) % Eos % (Auto) 0.4 L (2-4) % Baso % (Auto) 0.8 (0-2) % Neut # (Auto) 3300 (8397-7800) /uL Lymph # (Auto) 1900 (4517-4763) /uL Charlotte # (Auto) 500 (0-900) /uL Eos # (Auto) 0 (0-450) /uL Baso # (Auto) 0 (0-100) /uL Sodium 140 (137-145) mmol/L Potassium 3.7 (3.4-5.1) mmol/L Chloride 108 H (98-107) mmol/L Carbon Dioxide 27 (22-32) mmol/L BUN 16 (7-17) mg/dL Creatinine 0.89 (0.52-1.04) mg/dL Estimated GFR > 60.0 (>60) mL/min BUN/Creatinine Ratio 18.0 (6-22) Glucose 153 H (70-100) mg/dL Calcium 9.2 (8.4-10.2) mg/dL Total Bilirubin 0.7 (0.2-1.3) mg/dL AST 27 (14-36) IU/L ALT 13 (<35) IU/L Alkaline Phosphatase 75 (38-126) U/L Total Protein 6.8 (6.3-8.2) g/dL Albumin 3.7 (3.5-5.0) g/dL Globulin 3.1 (1.7-4.1) g/dL Albumin/Globulin Ratio 1.2 (1.0-2.8) TSH (0.47-4.68) uIU/mL U Opiates 300ng/mL cut Negative (Negative) Ur Oxycodone Screen Negative (Negative) Urine Methadone Screen Negative (Negative) Ur Barbiturates Screen Negative (Negative) U Tricyclic Antidepress Negative (Negative) Ur Phencyclidine Scrn Negative (Negative) Ur Amphetamines Screen Positive H (Negative) U Methamphetamines Scrn Positive H (Negative) Ur MDMA Scrn (Ecstasy) Negative (Negative) U Benzodiazepines Scrn Negative (Negative) Urine Cocaine Screen Negative (Negative) U Marijuana (THC) Screen Negative (Negative) Ethyl Alcohol < 10 ( - 10) mg/dL 05/01/21 Range/Units 06:46 WBC (4.5-11.0) X10^3/uL RBC (4.0-5.2) X10^6/uL Hgb (12.0-16.0) g/dL Hct (36-46) % MCV (80-100) fL MCH (26-34) PG MCHC (30-36) % RDW (11.6-14.8) % Plt Count (150-400) X10^3/uL Neut % (Auto) (50-75) % Lymph % (Auto) (25-40) % Charlotte % (Auto) (3-14) % Eos % (Auto) (2-4) % Baso % (Auto) (0-2) % Neut # (Auto) (4604-3470) /uL Lymph # (Auto) (1853-8804) /uL Charlotte # (Auto) (0-900) /uL Eos # (Auto) (0-450) /uL Baso # (Auto) (0-100) /uL Sodium (137-145) mmol/L Potassium (3.4-5.1) mmol/L Chloride (98-107) mmol/L Carbon Dioxide (22-32) mmol/L BUN (7-17) mg/dL Creatinine (0.52-1.04) mg/dL Estimated GFR (>60) mL/min BUN/Creatinine Ratio (6-22) Glucose (70-100) mg/dL Calcium (8.4-10.2) mg/dL Total Bilirubin (0.2-1.3) mg/dL AST (14-36) IU/L ALT (<35) IU/L Alkaline Phosphatase (38-126) U/L Total Protein (6.3-8.2) g/dL Albumin (3.5-5.0) g/dL Globulin (1.7-4.1) g/dL Albumin/Globulin Ratio (1.0-2.8) TSH 1.51 (0.47-4.68) uIU/mL U Opiates 300ng/mL cut (Negative) Ur Oxycodone Screen (Negative) Urine Methadone Screen (Negative) Ur Barbiturates Screen (Negative) U Tricyclic Antidepress (Negative) Ur Phencyclidine Scrn (Negative) Ur Amphetamines Screen (Negative) U Methamphetamines Scrn (Negative) Ur MDMA Scrn (Ecstasy) (Negative) U Benzodiazepines Scrn (Negative) Urine Cocaine Screen (Negative) U Marijuana (THC) Screen (Negative) Ethyl Alcohol ( - 10) mg/dL Point of Care Testing Test Results Negative Urine Dip Bedside Urine Glucose Negative Bedside Urine Bilirubin + 1 Bedside Urine Ketone - Negative Urine Specific Francis 1.02 Bedside Urine Occult Blood - Negative Bedside Urine pH 6.5 Bedside Urine Protein ++ 100 Bedside Urine Urobilinogen 1+ 2mg Bedside Urine Nitrite - Negative Bedside Urine Leukocytes - Negative Esterase Discharge Plan Departure Patient Disposition: Home Clinical Impression: Methamphetamine use disorder, moderate Instructions: Substance Use Disorder Activity Restrictions/Additional Instructions: Thank you for coming in today I sincerely hope that you are able to get away from your methamphetamine use and get back to your life. I would strongly encourage you to keep your appointment with Dr. Marcial on Monday. The fatigue that you likely will experience as withdrawal symptoms after your methamphetamine use does get better, it is very frustrating to deal with but the end result of getting your life back is well worth the effort. If you find that you are getting worse, you are unable to sleep, your hearing or seeing things that other people are not hearing or seeing, please feel free to return to the ER I wish you the best Prescriptions: No Action acetaminophen [Tylenol Extra Strength] 500 MG tablet 500 mg PO Q4HP PRN (Reason: pain) Qty: 0 0RF pregabalin 200 mg capsule 200 mg PO BID Qty: 60 1RF citalopram 20 mg tablet 40 mg PO DAILY Qty: 60 1RF alprazolam 0.5 mg tablet 0.5 mg PO BID PRN (Reason: anxiety) Qty: 20 0RF zolpidem 10 mg tablet 10 mg PO BEDTIME PRN (Reason: sleep) Qty: 30 2RF ciprofloxacin HCl 500 mg tablet 500 mg PO BID Qty: 20 0RF ondansetron 4 mg tablet,disintegrating 4 mg PO TID-QID PRN (Reason: nausea and vomiting) Qty: 10 0RF hydrocodone-acetaminophen 5-325 mg tablet 1 tab PO Q4-6H PRN (Reason: pain) Qty: 10 0RF oxycodone 5 mg Tablet 5 mg PO Q3HR PRN (Reason: pain 4-10) Qty: 20 0RF amoxicillin-pot clavulanate [Augmentin] 875-125 mg tablet 1 tab PO Q12H Qty: 20 0RF Referrals: Jan Marcial DO [Primary Care Provider] -
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
[2021-05-01 05:33] LABS: UR Morphine/Opiate cutoff 300 Negative (Negative); Ur Creatinine 20 (Normal); Ur Specific Gravity 1.025 (Normal); Urine Amphetamines Positive (Negative); Urine Barbiturates Negative (Negative); Urine Benzodiazepines Negative (Negative); Urine Cocaine Negative (Negative); Urine MDMA Negative (Negative); Urine Methadone Negative (Negative); Urine Methamphetamines Positive (Negative); Urine Oxycodone Negative (Negative); Urine Phencyclidine Negative (Negative); Urine Tetrahydrocannabinol Negative (Negative); Urine Tricyclic Antidepressant Negative (Negative); Urine pH 5 (Normal)
[2021-05-01 05:47] VITALS: BP 129/71; PULSE 80; RESP 20; O2SAT 97
[2021-05-01 06:56] LABS: Add Manual Diff / Slide Review NO; Basophils Absolute Auto 0 /uL (0-100); Basophils Percent Auto 0.8 % (0-2); Eosinophils Absolute Auto 0 /uL (0-450); Eosinophils Percent Auto 0.4 % (2-4); Hematocrit 31.6 % (36-46); Hemoglobin 10.8 g/dL (12.0-16.0); Lymphocytes Absolute Auto 1900 /uL (1100-4500); Lymphocytes Percent Auto 33.3 % (25-40); Mean Corpuscular HGB Conc 34.2 % (30-36); Mean Corpuscular Hemoglobin 29.4 PG (26-34); Monocytes Absolute Auto 500 /uL (0-900); Monocytes Percent Auto 8.1 % (3-14); Neutrophils Absolute Auto 3300 /uL (1500-7000); Neutrophils Percent Auto 57.4 % (50-75); Platelet Count 241 X10^3/uL (150-400); Red Blood Cell Count 3.67 X10^6/uL (4.0-5.2); Red Cell Distribution Width 14.1 % (11.6-14.8); White Blood Cell Count 5.7 X10^3/uL (4.5-11.0)
[2021-05-01 07:20] LABS: Alanine Aminotransferase 13 IU/L (<35); Albumin 3.7 g/dL (3.5-5.0); Albumin Globulin Ratio 1.2 (1.0-2.8); Alkaline Phosphatase 75 U/L (38-126); Aspartate Aminotransferase 27 IU/L (14-36); Bilirubin Total 0.7 mg/dL (0.2-1.3); Blood Urea Nitrogen 16 mg/dL (7-17); Calcium 9.2 mg/dL (8.4-10.2); Carbon Dioxide 27 mmol/L (22-32); Chloride 108 mmol/L (98-107); Estimated Glomerular Filt Rate > 60.0 mL/min (>60); Ethanol (ETOH) < 10 mg/dL; Globulin 3.1 g/dL (1.7-4.1); Glucose 153 mg/dL (70-100); HEMOLYSIS < 15 (0-50); Potassium 3.7 mmol/L (3.4-5.1); Sodium 140 mmol/L (137-145); Total Protein 6.8 g/dL (6.3-8.2)
[2021-05-01 08:06] LABS: TSH w/ Reflex to FT4 1.51 uIU/mL (0.47-4.68)
[2021-05-01 08:45] VITALS: BP 130/71; PULSE 114; RESP 17; O2SAT 98
== END 2021-05-01 08:47 | disposition home or self-care (01) ==
PROVIDERS: Emergency Provider Emergency Medicine; Family Provider Family Medicine; PCP Family Medicine
DX: F15.90 Other stimulant use, unspecified, uncomplicated (principal); Z87.891 Personal history of nicotine dependence
CPT/HCPCS: 36415; 70450; 80053; 80305; 80320; 81003; 81025; 84443; 85025; 99284

== ENCOUNTER → 2021-08-21 13:14 | Outpatient (CLI) | payer OTHER, MEDICAID, SELFPAY ==
[2021-04-14 02:50] VITALS: BMI 33.3
== END ==
PROVIDERS: Family Provider Family Medicine; PCP Family Medicine; Visit Provider Nurse Practitioner Family
DX: L08.9 Local infection of the skin and subcutaneous tissue, unspecified (principal)
CPT/HCPCS: 87070; 87075; 87077; 87147; 87186; 87205

== ENCOUNTER → 2021-12-10 13:53 | Outpatient (CLI) | payer OTHER, MEDICAID, SELFPAY ==
[2021-04-14 02:50] VITALS: BMI 33.3
== END ==
PROVIDERS: Family Provider Family Medicine; PCP Family Medicine; Visit Provider Nurse Practitioner Family
DX: N39.0 Urinary tract infection, site not specified (principal); J34.89 Other specified disorders of nose and nasal sinuses; N89.8 Other specified noninflammatory disorders of vagina
CPT/HCPCS: 81002; 87070; 87075; 87077; 87086; 87147; 87186; 87205; 87210

== ENCOUNTER 2023-05-09 18:48 | Emergency (ER) | payer OTHER, MEDICAID, SELFPAY ==
[2021-04-14 02:50] VITALS: BMI 33.3
--- NOTE | 2023-05-09 18:58 | PC.NURSE ---
Went to call pt to triage at [phone]. This RN walked to main waiting area, down hallway, checked bathrooms along the way and then looped back through back hallway and did not find pt. Registration states they did not see her leave and she was not with anyone. Will try again.
--- NOTE | 2023-05-09 19:39 | PC.NURSE ---
Again checked for patient in waiting areas and down/around by main entrance and all bathrooms. Pt did not answer.
== END 2023-05-09 19:50 | disposition left against medical advice (07) ==
LOC: ED 19:45
PROVIDERS: Emergency Provider Emergency Medicine; Family Provider Family Medicine; PCP Family Medicine
DX: R68.89 Other general symptoms and signs (principal)